=== PATIENT | male | born 1960 | race Caucasian/White ===

== ENCOUNTER 2016-08-26 11:06 | Emergency (ER) | payer OTHER ==
[2016-08-26 11:20] VITALS: BP 150/80; TEMP 96.3; BMI 29.4
--- NOTE | 2016-08-26 11:31 | ED.PDOC ---
General ED Provider: Dr. ATTILA SINGH JR Chief Complaint: Nausea/Vomiting Stated Complaint: felt like was starting to have panic attack, stomach started flipping over, vomited twice and started sweating[ End ]0830 96.3 54 20 97% 150/ 80 on xanax for panic attackes has been seen in [facility] for stomach issues has seen gi in reading Time Seen by Physician: 11:31 Mode of Arrival: Walk-In Information Source: Patient Exam Limitations: No limitations Primary Care Provider: LIBIA BURNETT Nursing and Triage Documentation Reviewed and Agree: No Review of Systems - Review Of Systems Constitutional: Reports: Malaise All Other Systems: Other Past Medical History - Past Medical History Endocrine: Reports: None Cardiovascular: Reports: None Respiratory: Reports: None Hematological: Reports: None Gastrointestinal: Reports: PUD (ulcers, barretts esophagus) Genitourinary: Reports: None Neuro/Psych: Reports: None Musculoskeletal: Reports: None Cancer: Reports: None Other Pertinent Past Medical History: spine and hip problems - Surgical History General Surgical History: Reports: Back Surgery (back diskectomy L4-L5) - Family History Family History: Reports: Unknown - Social History Smoking Status: Current every day smoker, Light tobacco smoker Hx Substance Use: No Alcohol Screening: None Physical Exam - Physical Exam Appearance: Well-appearing Ill-appearing: Mild Pain Distress: Mild Eyes: LISETH, EOMI, Conjunctiva clear ENT: Ears normal, Nose normal, Oropharynx normal Neck: Supple Respiratory: Airway patent, Breath sounds clear, Breath sounds equal, Respirations nonlabored Cardiovascular: RRR, Pulses normal, No rub, No murmur GI/: Soft, No masses, Bowel sounds normal, Tender Musculoskeletal: Normal strength, ROM intact, No edema, No calf tenderness Skin: Warm, Dry, Normal color Neurological: Sensation intact, Motor intact, Reflexes intact, Cranial nerves intact, Alert, Oriented Psychiatric: Anxious Interpretation - EKG Interpretation Time of EKG #1: 11:50 Rate: Arvind Rhythm: Sinus (56) ST Segment: Other (rbbb) Critical Care Note - Critical Care Note Total Time (mins): 0 Course - Course Hematology/Chemistry: 08/26/16 12:00 08/26/16 12:00 Orders, Labs, Meds: Lab Review 08/26/16 08/26/16 12:00 13:50 WBC 11.45 H RBC 5.39 Hgb 15.3 Hct 45.5 MCV 84.4 MCH 28.4 MCHC 33.6 RDW Coeff of Jose 14.3 Plt Count 274 Immature Gran % (Auto) 0.3 Neut % (Auto) 86.7 Lymph % (Auto) 9.3 L [place] % (Auto) 3.0 Eos % (Auto) 0.3 Baso % (Auto) 0.4 Immature Gran # (Auto) 0.0 Neut # 9.9 H Lymph # 1.1 [place] # 0.3 L Eos # 0.0 Baso # 0.1 Sodium 138 Potassium 4.2 Chloride 104 Carbon Dioxide 25 Anion Gap 13.2 BUN 8 Creatinine 1.14 H Estimated GFR (MDRD) 66.00 BUN/Creatinine Ratio 7.01 Glucose 125 H Calcium 9.4 Total Bilirubin 0.43 AST 15 ALT 16 Alkaline Phosphatase 51 Total Creatine Kinase 155 CK-MB (CK-2) 2.7 CK-MB (CK-2) % 1.18738 Troponin I < 0.0100 B-Natriuretic Peptide 18 Total Protein 6.7 Albumin 3.9 Globulin 2.8 Albumin/Globulin Ratio 1.39 Gastric Fluid pH Gastric Occult Blood Positive Orders Category Date Time Status EKG-(ED ONLY) Stat CARDIO 08/26/16 11:44 Completed NPO REMINDER: IMAGING ONCE CARE 08/26/16 11:45 Active B-TYPE NATRIURETIC PEPTIDE Stat LAB 08/26/16 12:00 Completed CBC W/ AUTO DIFF Stat LAB 08/26/16 12:00 Completed COMPREHENSIVE METABOLIC PANEL Stat LAB 08/26/16 12:00 Completed CREATINE KINASE Stat LAB 08/26/16 12:00 Completed GASTRIC OCCULT BLOOD AND PH Stat LAB 08/26/16 13:50 Completed TROPONIN I Stat LAB 08/26/16 12:00 Completed Ondansetron HCl/Pf [Zofran 4 mg/2 ml] MEDS 08/26/16 12:29 Discontinued 4 mg IM ONCE STA CHEST, 1V AP ONLY Stat RADS 08/26/16 11:44 Completed ULTRASOUND ABDOMEN, RT. UPPER QUAD [U/S ABDOMEN, RT. RADS 08/26/16 11:44 Completed UPPER QUAD] Stat Medications Discontinued Medications Generic Name Dose Route Start Last Admin Trade Name Freq PRN Reason Stop Dose Admin Ondansetron HCl 4 mg 08/26/16 12:29 08/26/16 12:36 Zofran 4 Mg/2 Ml IM 08/26/16 12:30 4 mg ONCE STA Administration Vital Signs: Temp Pulse Resp BP Pulse Ox 08/26/16 11:06 96.3 F L 54 L 20 150/80 H 97 Departure - Departure Time of Disposition: 13:26 Disposition: HOME SELF-CARE Discharge Problem: Nausea, Vomiting Instructions: Acute Nausea and Vomiting (ED) Condition: Good Pt referred to PMD for follow-up: Yes Additional Instructions: follow up with PMD discuss gastroenterology evaluation phenergan for nausea return if fever over 101.0 if worsening Prescriptions: Promethazine HCl [Phenergan Supp] 1 - 2 supp RC QID PRN #12 supp PRN Reason: Nausea / Vomiting Allergies/Adverse Reactions: Allergies aspirin Allergy (Mild, Verified 08/26/16 12:27) due to history of ulcers hydroxyzine HCl [From Atarax] Allergy (Mild, Verified 08/26/16 12:27) Foggy Qefjhcr-Qlz-Qih Reductase Inhibitor Allergy (Mild, Verified 08/26/16 12:27) due to ulcers baclofen Adverse Reaction (Verified 08/26/16 12:27) ranitidine [From Zantac] Adverse Reaction (Verified 08/26/16 12:27) Home Medications: Ambulatory Orders Omeprazole [Prilosec] 40 mg PO QDAC 08/26/16 Promethazine HCl [Phenergan Supp] 1 - 2 supp RC QID PRN #12 supp 08/26/16
[2016-08-26 12:07] LABS: BASOPHILS # (AUTO) 0.1 K/uL (0-0.2); BASOPHILS % (AUTO) 0.4 % (0.0-3.0); EOSINOPHILS % (AUTO) 0.3 % (0.0-7.0); HEMATOCRIT 45.5 % (42.0-52.0); HEMOGLOBIN 15.3 g/dl (14.0-18.0); IMMATURE GRANULOCYTE % (AUTO) 0.3 % (0.0-5.0); LYMPHOCYTES # (AUTO) 1.1 K/uL (0.60-3.4); LYMPHOCYTES % (AUTO) 9.3 (10.0-50.0); MEAN CORPUSCULAR HEMOGLOBIN 28.4 pg (27.0-31.0); MEAN CORPUSCULAR HGB CONC 33.6 (31.8-35.4); MEAN CORPUSCULAR VOLUME 84.4 fl (80.0-94.0); MONOCYTES # (AUTO) 0.3 K/uL (0.4-2.0); NEUTROPHILS # (AUTO) 9.9 K/ul (2.0-6.9); NEUTROPHILS % (AUTO) 86.7; PLATELET COUNT 274 10^3/uL (140-440); RED BLOOD COUNT 5.39 10^6/ul (4.70-6.10); WHITE BLOOD COUNT 11.45 K/ul (4.2-10.2)
[2016-08-26] MEDS ORDERED: ZOFRAN 4 MG/2 ML IM STA (12:29)
--- NOTE | 2016-08-26 12:36 | DI ---
EXAM: CHEST FRONTAL VIEW HISTORY: Chest pain. COMPARISON: None FINDINGS: Heart size and mediastinum within normal limits. Lungs are free of infiltrate. No c onsolidation or pleural fluid. There is no pneumothorax or acute bony finding. IMPRESSION: Findings within normal limits.
--- NOTE | 2016-08-26 12:49 | US ---
EXAM: Ultrasound abdomen limited. HISTORY: Right upper quadrant pain. Diaphoresis. COMPARISON: None available. TECHNIQUE: Abdominal, real time with image documentation: limited (eg, single organ, quadrant, fol low-up) FINDINGS: The liver demonstrates homogeneous echotexture without intrahepatic biliary dilatation. Portal venous flow is normal in direction. The gallbladder is without shadowing stones, wall thicke bernadette or pericholecystic fluid. Common duct measures approximately 0.4 cm. Visualized portions of t he pancreas are unremarkable. IMPRESSION: No sonographic abnormality of the liver, gallbladder or biliary system.
[2016-08-26 13:01] LABS: ALANINE AMINOTRANSFERASE 16 U/L (12-78); ALBUMIN 3.9 g/dL (3.4-5.0); ALBUMIN/GLOBULIN RATIO 1.39; ALKALINE PHOSPHATASE 51 U/L (50-136); ANION GAP 13.2; ASPARTATE AMINO TRANSFERASE 15 U/L (15-37); BILIRUBIN,TOTAL 0.43 mg/dL (0.00-1.20); BLOOD UREA NITROGEN 8 mg/dL (7-18); BUN/CREATININE RATIO 7.01; CALCIUM 9.4 mg/dL (8.2-10.2); CARBON DIOXIDE 25 mmol/L (21-32); CHLORIDE 104 mmol/L (98-107); CREATINE KINASE 155 U/L; CREATININE 1.14 mg/dL (0.60-1.10); GLUCOSE 125 mg/dL (70-100); POTASSIUM 4.2 mmol/L (3.5-5.1); SODIUM 138 mmol/L (136-145); TOTAL PROTEIN 6.7 g/dL (6.4-8.2)
[2016-08-26 13:03] LABS: CREATINE KINASE MB 2.7 ng/ml (0.0-3.6)
[2016-08-26 14:15] LABS: GASTRIC OCC. BLOOD INTERNAL QC INTERNAL QC VALID; GASTRIC OCCULT BLOOD POSITIVE (NEGATIVE)
== END 2016-08-26 14:11 | disposition home or self-care (01) ==
LOC: ED 11:06
DX: R11.2 Nausea with vomiting, unspecified (principal); F17.210 Nicotine dependence, cigarettes, uncomplicated; Z87.19 Personal history of other diseases of the digestive system
CPT/HCPCS: 36415; 80053; 82271; 82550; 82553; 83880; 84484; 85025; 93005; 93010; 96372; 99283

== ENCOUNTER 2016-08-29 05:59 | Inpatient (IN) ==
[2016-08-29] MEDS ORDERED: SODIUM CHLORIDE 1,000 ML IV STA ×2 (06:30→09:07)
[2016-08-29] MEDS ORDERED: PROTONIX IV IVP STA (06:31)
[2016-08-29] MEDS ORDERED: PHENERGAN 25 MG/ML VIAL 25 MG in SODIUM CHLORIDE 50 ML IV STA (06:33)
[2016-08-29 06:41] LABS: BASOPHILS # (AUTO) 0.1 K/uL (0-0.2); BASOPHILS % (AUTO) 0.3 % (0.0-3.0); EOSINOPHILS # (AUTO) 0.1 K/ul (0.0-0.7); EOSINOPHILS % (AUTO) 0.4 % (0.0-7.0); HEMATOCRIT 48.8 % (42.0-52.0); HEMOGLOBIN 16.3 g/dl (14.0-18.0); IMMATURE GRANULOCYTE % (AUTO) 0.4 % (0.0-5.0); LYMPHOCYTES # (AUTO) 2.3 K/uL (0.60-3.4); MEAN CORPUSCULAR HEMOGLOBIN 28.4 pg (27.0-31.0); MEAN CORPUSCULAR HGB CONC 33.4 (31.8-35.4); MONOCYTES # (AUTO) 1.2 K/uL (0.4-2.0); MONOCYTES % (AUTO) 7.9 (0-10); NEUTROPHILS # (AUTO) 11.5 K/ul (2.0-6.9); PLATELET COUNT 324 10^3/uL (140-440); RED BLOOD COUNT 5.74 10^6/ul (4.70-6.10); WHITE BLOOD COUNT 15.12 K/ul (4.2-10.2)
[2016-08-29] MEDS ORDERED: PHENERGAN 25 MG/ML VIAL ONE (06:41)
--- NOTE | 2016-08-29 06:42 | ED.PDOC ---
General Stated Complaint: stephanie been vomiting--im supposed to see a gi doctor next week-- no bm for 4 days Time Seen by Physician: 06:10 Mode of Arrival: Walk-In Information Source: Patient, Family Exam Limitations: No limitations Nursing and Triage Documentation Reviewed and Agree: Yes <JANELLE-ERBARBARA Last Filed: 08/29/16 06:39> <DENNIS HARP - Last Filed: 09/06/16 08:00> ED Provider: Dr. DENNIS HARP Chief Complaint: Nausea/Vomiting Primary Care Provider: LIBIA BURNETT GI Complaint Exam - Vomiting/Diarrhea Complaint/Exam Onset/Duration: 4days Symptoms Are: Still present Episodes of Vomiting over last 24 Hours: 5 Episodes of Diarrhea Over Last 24 Hours: 0 Initial Severity: Mild Current Severity: Moderate Character of Vomiting: Reports: Non-bilious Character of Diarrhea: Denies: Bloody, Watery, Mucoid, Malodorous Aggravating: Reports: Food Alleviating: Reports: None Associated Signs and Symptoms: Reports: Abdominal pain. Denies: Dizziness, Light-headedness, Melena, Fever Related History: Reports: Similar episode Non-GI Risk Factors: Reports: None Surgical Obstruction Risk Factors: Reports: Prior abdominal surgery Abdominal Findings: Present: None Prostate Exam: Nontender Kussmaul Respirations Present: No Differential Diagnoses: Cholecystitis, Cholelithiasis, Dehydration, Pancreatitis <CARONMONIKABARBARA Filed: 08/29/16 06:39> Review of Systems - Review Of Systems Constitutional: Reports: No symptoms Eyes: Reports: No symptoms Ears, Nose, Mouth, Throat: Reports: No symptoms Respiratory: Reports: No symptoms Cardiac: Reports: No symptoms GI: Reports: Abdominal pain, Nausea, Vomiting : Reports: No symptoms Musculoskeletal: Reports: No symptoms Skin: Reports: No symptoms Neurological: Reports: No symptoms Endocrine: Reports: No symptoms Hematologic/Lymphatic: Reports: No symptoms All Other Systems: Reviewed and Negative <CARONMONIKABARBARA Filed: 08/29/16 06:39> Past Medical History - Past Medical History Endocrine: Reports: None Cardiovascular: Reports: None Respiratory: Reports: None Hematological: Reports: None Gastrointestinal: Reports: PUD (ulcers, barretts esophagus) Genitourinary: Reports: None Neuro/Psych: Reports: None Musculoskeletal: Reports: None Cancer: Reports: None Other Pertinent Past Medical History: spine and hip problems - Surgical History General Surgical History: Reports: Back Surgery (back diskectomy L4-L5) - Family History Family History: Reports: Unknown - Social History Smoking Status: Former smoker Hx Substance Use: Yes (occasional marijuana for pain) Alcohol Screening: None Lives: With family - Immunizations Tetanus Shot up to Date: No <BARBARA COLON - Last Filed: 08/29/16 06:39> Physical Exam - Physical Exam Appearance: Well-appearing, No pain distress, Well-nourished Pain Distress: Mild Eyes: LISETH, EOMI, Conjunctiva clear ENT: Ears normal, Nose normal, Oropharynx normal Neck: Supple Respiratory: Airway patent, Breath sounds clear, Breath sounds equal, Respirations nonlabored Cardiovascular: RRR, Pulses normal, No rub, No murmur GI/: Soft, Nontender, No masses, Bowel sounds normal, No Organomegaly Musculoskeletal: Normal strength, Limited ROM Skin: Warm Neurological: Sensation intact, Motor intact, Reflexes intact, Cranial nerves intact, Alert, Oriented Psychiatric: Affect appropriate <BARBARA COLON - Last Filed: 08/29/16 06:39> Physician Notification - Case Discussed Physician Notified: dr harp Time of Notification: 07:00 <BARBARA COLON - Last Filed: 08/29/16 06:39> Critical Care Note - Critical Care Note Total Time (mins): 15 <DENNIS HARP - Last Filed: 09/06/16 08:00> Course - Course Hematology/Chemistry: 08/31/16 04:47 08/31/16 04:47 <DENNIS HARP - Last Filed: 09/06/16 08:00> - Course Orders, Labs, Meds: Lab Review 08/29/16 08/29/16 08/29/16 06:37 07:00 09:05 WBC 15.12 H RBC 5.74 Hgb 16.3 Hct 48.8 MCV 85.0 MCH 28.4 MCHC 33.4 RDW Coeff of Jose 14.1 Plt Count 324 Immature Gran % (Auto) 0.4 Neut % (Auto) 76.0 Lymph % (Auto) 15.0 [place] % (Auto) 7.9 Eos % (Auto) 0.4 Baso % (Auto) 0.3 Immature Gran # (Auto) 0.1 Neut # 11.5 H Lymph # 2.3 [place] # 1.2 Eos # 0.1 Baso # 0.1 Sodium 138 Potassium 3.1 L Chloride 98 Carbon Dioxide 29 Anion Gap 14.1 BUN 20 H Creatinine 1.29 H Estimated GFR (MDRD) 57.00 BUN/Creatinine Ratio 15.50 Glucose 106 H Calcium 9.0 Total Bilirubin 1.23 H AST 28 ALT 22 Alkaline Phosphatase 47 L Total Creatine Kinase 664 CK-MB (CK-2) 2.9 CK-MB (CK-2) % 0.14227 Troponin I 0.0130 Total Protein 7.3 Albumin 4.0 Globulin 3.3 Albumin/Globulin Ratio 1.21 Amylase 50 Lipase 21 Stl Occult Blood (IFOB) Negative Stool Occult Blood #2 No specimen received Stool Occult Blood #3 No specimen received Influenza A (Rapid) Negative Influenza B (Rapid) Negative Orders Category Date Time Status EKG-(ED ONLY) Stat CARDIO 08/29/16 06:29 Completed NPO REMINDER: IMAGING ONCE CARE 08/29/16 06:32 Completed ED IV/MEDIPORT/POWERPORT .ONCE EMERGENCY 08/29/16 06:30 Active AMYLASE Stat LAB 08/29/16 06:37 Completed CBC W/ AUTO DIFF Stat LAB 08/29/16 06:37 Completed COMPREHENSIVE METABOLIC PANEL Stat LAB 08/29/16 06:37 Completed CREATINE KINASE Stat LAB 08/29/16 06:37 Completed LIPASE Stat LAB 08/29/16 06:37 Completed MOLECULAR GROUP A STREP Stat LAB 08/29/16 07:00 Completed OCCULT BLOOD, STOOL Stat LAB 08/29/16 09:05 Completed RAPID FLU A/B Stat LAB 08/29/16 07:00 Completed STREP SCREEN Stat LAB 08/29/16 07:00 Completed TROPONIN I Stat LAB 08/29/16 06:37 Completed URINALYSIS C & S IF INDICATED Stat LAB 08/29/16 13:35 Completed 0.9 % Sodium Chloride [Saline Flush] MEDS 08/29/16 06:30 Discontinued 1 syr IVF PRN PRN Metoclopramide HCl [Reglan] MEDS 08/29/16 09:07 Discontinued 5 mg IVP ONCE STA Pantoprazole Sodium [Protonix IV] MEDS 08/29/16 06:31 Discontinued 40 mg IVP ONCE STA Potassium Chloride [Potassium Chloride Premix Run] 10 MEDS 08/29/16 08:38 Discontinued meq Premix 100 ml Water 1 bag IV ONCE Potassium Chloride [Potassium Chloride Premix Run] 100 MEDS 08/29/16 08:43 Discontinued ml IV .STK-MED Promethazine HCl [Phenergan 25 mg/ml Vial] MEDS 08/29/16 06:41 Discontinued 25 mg .ROUTE .STK-MED ONE Promethazine HCl [Phenergan 25 mg/ml Vial] 25 mg MEDS 08/29/16 06:33 Discontinued 0.9 % Sodium Chloride [Sodium Chloride] 50 ml IV ONCE Sodium Chloride 0.9% [Sodium Chloride] 1,000 ml MEDS 08/29/16 06:30 Discontinued IV BOLUS Sodium Chloride 0.9% [Sodium Chloride] 1,000 ml MEDS 08/29/16 09:[address] ABDOMEN/PELVIS W/WO CONTRAS Stat RADS 08/29/16 06:32 Completed Medications Discontinued Medications Generic Name Dose Route Start Last Admin Trade Name Freq PRN Reason Stop Dose Admin Alprazolam 1 mg 08/29/16 21:00 08/30/16 08:19 Xanax PO 1 mg BID GIANA Administration Alprazolam 1 mg 08/30/16 21:00 08/31/16 08:52 Xanax PO 1 mg BID GIANA Administration Sodium Chloride 1,000 mls @ 1,000 mls/hr 08/29/16 06:30 08/29/16 06:49 Sodium Chloride IV 08/29/16 07:29 1,000 mls/hr BOLUS STA Administration Promethazine HCl 25 mg/ Sodium 51 mls @ 75 mls/hr 08/29/16 06:33 08/29/16 06: 49 Chloride IV 08/29/16 07:13 75 mls/hr ONCE STA Administration Potassium Chloride 10 meq/ 100 mls @ 100 mls/hr 08/29/16 08:38 08/29/16 08:52 Sterile Water IV 08/29/16 09:37 100 mls/hr ONCE STA Administration Sodium Chloride 1,000 mls @ 1,000 mls/hr 08/29/16 09:07 08/29/16 10:06 Sodium Chloride IV 08/29/16 10:06 1,000 mls/hr BOLUS STA Administration Potassium Chloride/Dextrose/Sod Cl 1,000 mls @ 150 mls/hr 08/29/16 10:30 10:56 D5%-Ns-Kcl 20 Meq/L Iv Nithya IV Not Given .Q6H40M GIANA Metoclopramide HCl 5 mg 08/29/16 09:07 08/29/16 10:05 Reglan IVP 08/29/16 09:08 5 mg ONCE STA Administration Metoclopramide HCl 5 mg 08/29/16 10:11 Reglan IVP Q6H PRN Nausea / Vomiting Morphine Sulfate 2 mg 08/29/16 10:11 Morphine 2 Mg/Ml Syringe IVP Q4H PRN Severe Pain Ondansetron HCl 4 mg 08/29/16 10:11 08/31/16 05:18 Zofran 4 Mg/2 Ml IVP 4 mg Q6H PRN Administration Nausea / Vomiting Pantoprazole Sodium 40 mg 08/29/16 06:31 08/29/16 06:48 Protonix Iv IVP 08/29/16 06:32 40 mg ONCE STA Administration Pantoprazole Sodium 40 mg 08/29/16 21:00 08/31/16 09:33 Protonix Iv IVP 40 mg Q12HR GIANA Administration Potassium Chloride 40 meq 08/29/16 20:16 08/29/16 20:33 K-Dur PO 08/29/16 20:17 40 meq ONCE STA Administration Sodium Chloride 1 syr 08/29/16 06:30 Saline Flush IVF PRN PRN To flush IV Vital Signs: Temp Pulse Resp BP Pulse Ox 08/29/16 05:59 97.5 F L 93 H 20 126/91 H 94 L Departure <BARBARA COLON - Last Filed: 08/29/16 06:39> - Departure Time of Disposition: 10:20 Pt referred to PMD for follow-up: No (admitted ) <DENNIS HARP - Last Filed: 09/06/16 08:00> - Departure Disposition: ADMITTED INPATIENT Discharge Problem: Upper gastrointestinal hemorrhage Abdominal pain Qualifiers: Abdominal location: epigastric Qualifier Code: (R10.13) Epigastric pain Condition: Stable Allergies/Adverse Reactions: Allergies aspirin Allergy (Mild, Verified 08/29/16 06:18) due to history of ulcers hydroxyzine HCl [From Atarax] Allergy (Mild, Verified 08/29/16 06:18) Foggy Ldvkxju-Erp-Iog Reductase Inhibitor Allergy (Mild, Verified 08/29/16 06:18) due to ulcers baclofen Adverse Reaction (Verified 08/29/16 06:18) ranitidine [From Zantac] Adverse Reaction (Verified 08/29/16 06:18) Home Medications: Ambulatory Orders Omeprazole [Prilosec] 40 mg PO QDAC 08/26/16 Promethazine HCl [Phenergan Tab] 25 mg PO Q4HR PRN 08/29/16 Sucralfate [Carafate] 1 gm PO ACHS #120 tablet 08/31/16
[2016-08-29 07:17] LABS: ALBUMIN/GLOBULIN RATIO 1.21; ANION GAP 14.1; BILIRUBIN,TOTAL 1.23 mg/dL (0.00-1.20); BUN/CREATININE RATIO 15.5; CREATININE 1.29 mg/dL (0.60-1.10); POTASSIUM 3.1 mmol/L (3.5-5.1); TOTAL PROTEIN 7.3 g/dL (6.4-8.2)
[2016-08-29 07:18] LABS: TROPONIN I 0.013 ng/ml (0.0000-0.4000)
[2016-08-29 07:20] LABS: CREATINE KINASE MB 2.9 ng/ml (0.0-3.6)
[2016-08-29 07:21] LABS: FLU INTERNAL QC INTERNAL QC VALID; RAPID FLU A NEGATIVE (NEGATIVE); RAPID FLU B NEGATIVE (NEGATIVE)
--- NOTE | 2016-08-29 07:57 | CT ---
EXAM: CT scan of the abdomen and pelvis with and without contrast HISTORY: Abdominal pain, vomiting TECHNIQUE: Imaging of the abdomen and pelvis was performed before and after the intravenous adminis tration of contrast. 3 mm thin axial images and coronal and sagittal reconstructions were provided for interpretation. Comparison none. FINDINGS: The liver, spleen, pancreas, adrenal glands and kidneys appear normal. The proximal uret ers are normal size. The small and large bowel loops caliber. The appendix appears normal. There i s no free air. No acute abnormalities are seen within the anterior abdominal wall. The helical images obtained through the pelvis demonstrate a normal appearance of the rectum, urinar y bladder. There is no free fluid seen within the pelvis. No retroperitoneal abnormalities are see n. Lung bases are clear. No lytic or blastic lesions are seen within the osseous structures. IMPRESSION: There is no bowel obstruction or acute inflammatory change seen within the abdomen and pelvis. There is no ureteral obstruction.
[2016-08-29] MEDS ORDERED: POTASSIUM CHLORIDE PREMIX RUN 10 MEQ in PREMIX 100 ML WATER 1 BAG IV STA (08:38)
[2016-08-29] MEDS ORDERED: POTASSIUM CHLORIDE PREMIX RUN 100 ML IV ONE (08:43)
[2016-08-29] MEDS ORDERED: REGLAN IVP STA (09:07)
[2016-08-29 09:31] LABS: OCCULT BLOOD INTERNAL QC 1 INTERNAL QC VALID; OCCULT BLOOD SAMPLE 1 NEGATIVE (NEGATIVE)
[2016-08-29 09:32] LABS: OCCULT BLOOD INTERNAL QC 2 INTERNAL QC VALID; OCCULT BLOOD INTERNAL QC 3 INTERNAL QC VALID; OCCULT BLOOD SAMPLE 2 NO SPECIMEN RECEIVED (NEGATIVE); OCCULT BLOOD SAMPLE 3 NO SPECIMEN RECEIVED (NEGATIVE)
[2016-08-29] MEDS ORDERED: REGLAN IVP PRN (10:11)
[2016-08-29] MEDS ORDERED: ZOFRAN 4 MG/2 ML IVP PRN (10:11)
[2016-08-29] MEDS ORDERED: MORPHINE 2 MG/ML SYRINGE IVP PRN (10:11)
[2016-08-29 11:08] VITALS: BMI 27.7
[2016-08-29] MEDS: D5%-NS-KCL 20 MEQ/L IV SOL 1,000 ML IV SCH ×2 (12:04→18:46)
[2016-08-29 13:47] LABS: BILIRUBIN,URINE Negative (NEGATIVE); KETONES,URINE 2+ (NEGATIVE); LEUKOCYTE ESTERASE ,URINE Negative (NEGATIVE); NITRITE,URINE Negative (NEGATIVE); PH,URINE 7.5 (5-9); PROTEIN,URINE 1+ (NEGATIVE); URINE, BLOOD Negative (NEGATIVE)
[2016-08-29 13:51] LABS: ADD URINE MICROSCOPIC YES
[2016-08-29] MEDS ORDERED: K-DUR PO STA (20:16)
[2016-08-29] MEDS: PROTONIX IV IVP SCH (20:25)
[2016-08-29] MEDS: XANAX PO SCH (20:25)
[2016-08-29] MEDS ORDERED: NON-FORMULARY MEDICATION (Alprazolam [Xanax] 1 MG) PO SCH ×22 (21:00)
[2016-08-30] MEDS: D5%-NS-KCL 20 MEQ/L IV SOL 1,000 ML IV SCH ×4 (02:23→23:14)
[2016-08-30 04:59] LABS: BASOPHILS # (AUTO) 0.1 K/uL (0-0.2); BASOPHILS % (AUTO) 0.6 % (0.0-3.0); EOSINOPHILS # (AUTO) 0.1 K/ul (0.0-0.7); EOSINOPHILS % (AUTO) 1.1 % (0.0-7.0); HEMATOCRIT 39.3 % (42.0-52.0); HEMOGLOBIN 13.1 g/dl (14.0-18.0); IMMATURE GRANULOCYTE % (AUTO) 0.4 % (0.0-5.0); LYMPHOCYTES # (AUTO) 2.3 K/uL (0.60-3.4); LYMPHOCYTES % (AUTO) 22.5 (10.0-50.0); MEAN CORPUSCULAR HEMOGLOBIN 28.7 pg (27.0-31.0); MEAN CORPUSCULAR HGB CONC 33.3 (31.8-35.4); MEAN CORPUSCULAR VOLUME 86.2 fl (80.0-94.0); MONOCYTES # (AUTO) 0.8 K/uL (0.4-2.0); MONOCYTES % (AUTO) 8.3 (0-10); NEUTROPHILS # (AUTO) 6.7 K/ul (2.0-6.9); NEUTROPHILS % (AUTO) 67.1; PLATELET COUNT 243 10^3/uL (140-440); RED BLOOD COUNT 4.56 10^6/ul (4.70-6.10); WHITE BLOOD COUNT 10.01 K/ul (4.2-10.2)
[2016-08-30 06:32] LABS: ALBUMIN/GLOBULIN RATIO 1.2; ANION GAP 9.6; BILIRUBIN,TOTAL 0.8 mg/dL (0.00-1.20); BUN/CREATININE RATIO 11.36; CALCIUM 7.6 mg/dL (8.2-10.2); CREATININE 0.88 mg/dL (0.60-1.10); POTASSIUM 3.6 mmol/L (3.5-5.1); TOTAL PROTEIN 5.5 g/dL (6.4-8.2)
[2016-08-30] MEDS: XANAX PO SCH ×2 (08:19→20:37)
[2016-08-30] MEDS ORDERED: LOVENOX SUBCUT SCH (09:00)
[2016-08-30] MEDS: PROTONIX IV IVP SCH ×2 (09:28→20:37)
[2016-08-31 04:49] LABS: BASOPHILS # (AUTO) 0.1 K/uL (0-0.2); BASOPHILS % (AUTO) 0.7 % (0.0-3.0); EOSINOPHILS # (AUTO) 0.4 K/ul (0.0-0.7); EOSINOPHILS % (AUTO) 3.9 % (0.0-7.0); HEMATOCRIT 40.7 % (42.0-52.0); HEMOGLOBIN 13.5 g/dl (14.0-18.0); IMMATURE GRANULOCYTE % (AUTO) 0.5 % (0.0-5.0); LYMPHOCYTES # (AUTO) 2.8 K/uL (0.60-3.4); LYMPHOCYTES % (AUTO) 27.5 (10.0-50.0); MEAN CORPUSCULAR HEMOGLOBIN 28.7 pg (27.0-31.0); MEAN CORPUSCULAR HGB CONC 33.2 (31.8-35.4); MEAN CORPUSCULAR VOLUME 86.6 fl (80.0-94.0); MONOCYTES # (AUTO) 0.8 K/uL (0.4-2.0); MONOCYTES % (AUTO) 7.4 (0-10); PLATELET COUNT 239 10^3/uL (140-440); WHITE BLOOD COUNT 10.07 K/ul (4.2-10.2)
[2016-08-31 05:12] LABS: ALBUMIN 3.2 g/dL (3.4-5.0); ALBUMIN/GLOBULIN RATIO 1.19; ANION GAP 8.7; BILIRUBIN,TOTAL 0.68 mg/dL (0.00-1.20); BUN/CREATININE RATIO 7.29; CALCIUM 8.2 mg/dL (8.2-10.2); CREATININE 0.96 mg/dL (0.60-1.10); POTASSIUM 3.7 mmol/L (3.5-5.1); TOTAL PROTEIN 5.9 g/dL (6.4-8.2)
[2016-08-31] MEDS: XANAX PO SCH (08:52)
[2016-08-31] MEDS: PROTONIX IV IVP SCH (09:33)
--- NOTE | 2016-08-31 10:03 | PCM.PROG ---
Attending Provider: ATTENDING PROVIDER: Dr. REDD MALONEY DATE OF SERVICE: 08/31/16 SUBJECTIVE: This 56 year old WHITE/ M was hospitalized 08/29/16. The patient was admitted with vomiting. Today hemoglobin is stable. He is tolerating a regular diet. The patient states he has an appointment with a GI specialist at [facility] on the . He has no more blood in the stool. No more vomiting. He still has some epigastric pain. REVIEW OF SYSTEMS: CONSTITUTIONAL: No fever, no chills. ENDOCRINE: No weight loss or weight gain. HEENT: No sinus drainage, no sore throat. CVS: No angina symptoms. No CHF symptoms. No palpitations. No atypical chest pain for CAD. No shortness of breath. RESPIRATORY: No cough, no hemoptysis. GI: No melena. Epigastric discomfort. No nausea, no vomiting. : No hematuria. No polyuria. SKIN: No rash. No wounds. MUSCULOSKELETAL: No pain. 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 No headache. No double vision. PSYCHIATRIC: Not anxious; no depression. No suicidal thoughts. No homicidal thoughts. PHYSICAL EXAMINATION: GENERAL: Sitting in the chair in no distress. VITAL SIGNS: Temperature 97.8 F, Pulse 59, Respiratory Rate 18, BP 132/81, Pulse Ox 99% HEENT: Normocephalic, atraumatic. Mucosa is dry, pallor positive. NECK: No JVP, no carotid bruit. No lymphadenopathy. CARDIAC: S1, S2, no S3. No murmur, gallop or regurgitation. LUNGS: Clear to auscultation. ABDOMEN: Soft, non-tender. Epigastric discomfort. Bowel sounds active. No rigidity, guarding or CVA tenderness. EXTREMITIES: No clubbing, cyanosis or edema. NEUROLOGIC: Awake, alert and oriented x3. LYMPHATIC: No palpable lymph nodes SKIN: Not dry. Intact. MUSCULOSKELETAL: No joint swelling. LAB REVIEW: 08/31/16 04:47 08/31/16 04:47 08/31/16 04:47: WBC 10.07, RBC 4.70, Hgb 13.5 L, Hct 40.7 L, MCV 86.6, MCH 28.7 , MCHC 33.2, RDW Coeff of Jose 13.6, Plt Count 239, Immature Gran % (Auto) 0.5, Neut % (Auto) 60.0, Lymph % (Auto) 27.5, [place] % (Auto) 7.4, Eos % (Auto) 3.9, Baso % (Auto) 0.7, Immature Gran # (Auto) 0.1, Neut # 6.0, Lymph # 2.8, [place] # 0.8, Eos # 0.4, Baso # 0.1, Sodium 139, Potassium 3.7, Chloride 110 H, Carbon Dioxide 24, Anion Gap 8.7, BUN 7, Creatinine 0.96, Estimated GFR (MDRD) 81.00, BUN/Creatinine Ratio 7.29, Glucose 97, Calcium 8.2, Total Bilirubin 0.68, AST 19 , ALT 25, Alkaline Phosphatase 34 L, Total Protein 5.9 L, Albumin 3.2 L, Globulin 2.7, Albumin/Globulin Ratio 1.19 ASSESSMENT: 1. Upper GI bleed with hematemesis, coffee ground; stable hemoglobin 2. History of upper GI bleed with Wise's esophagus. 3. History of DJD with lumbar surgeries PLAN: 1. Soft diet 2. No spicy food 3. Followup at [facility] 4. Discharge home 5. Carafate four times a day 6. Continue Prilosec Plan and coordination of the patient's care discussed in the presence of Environmental Professional and nurse. EDUCATION: Discussed with the patient GI bleeding, diet with foods to avoid to include pizza, tomatoes, et cetera. He voiced understanding. Advised seeing a GI specialist; he has an appointment coming up. CONDITION: Stable SCRIBED BY: [employer] scribed while in presence of service performed by Dr. REDD MALONEY on 08/31/16 (0728)
[2016-08-31 10:19] VITALS: BP 128/78; TEMP 98
[2016-08-31] MEDS: D5%-NS-KCL 20 MEQ/L IV SOL 1,000 ML IV SCH (10:56)
--- NOTE | 2016-08-31 14:15 | HP ---
DATE OF SERVICE: 08/29/16 CHIEF COMPLAINT: Abdominal pain. HISTORY OF PRESENT ILLNESS: This is a 56-year-old male, who has a history of peptic ulcer disease, has been taking Nexium twice a day but lately because of insurance changes it was decreased to once a day. Ever since that he has been nauseous, hurting in the epigastric area and started vomiting. Vomitus does contain some coffee ground emesis. He was seen two days before in the emergency room for the same reason. The patient was given some Phenergan and sent home. The patient is still not able to keep anything down, having epigastric pain, nausea and vomiting and came to the emergency room for evaluation. He was seen by Dr. Banks. CT abdomen and pelvis was done. There was no acute findings. White count was 15,000 , potassium 3.1. Amylase and lipase were normal. Urine negative. Stool for occult blood test negative. At that time in view of persistent vomiting, history of coffee ground emesis, history of upper GI bleed in the past, the patient is admitted to the hospital for IV fluids and maintenance of the coffee ground emesis. REVIEW OF SYSTEMS: CONSTITUTIONAL: Weakness, tiredness. No fever, no chills. HEENT: Normal. ENDOCRINE: No weight gain; no weight loss. CVS: No chest pain. No PND, no orthopnea. No shortness of breath. No PND, no orthopnea. RESPIRATORY: No cough, no congestion. No hemoptysis. GI: Abdominal pain. Vomiting. Epigastric pain. Melena in the vomitus. : No hematuria. No polyuria. MUSCULOSKELETAL: No joint swelling. PSYCHIATRIC: Not anxious. No depression. No suicidal thoughts. No homicidal thoughts. SKIN: Intact, no open lesions. PAST MEDICAL HISTORY: 1. History of Couch's esophagitis, EGD done by Dr. Peralta 2. Hiatal hernia 3. Abdominal pain 4. History of hematemesis and GI bleed 5. He has a problem with anxiety and substance use, occasional marijuana 6. Osteoarthritis 7. DJD spine 8. The patient had Lyme's disease times three 9. TIA 10. Endoscopy times three 11. Bronchoscopy PAST SURGICAL HISTORY: 1. L4-L5 surgery 2. Right torn cartilage 3. Stem cell shots 4. Lumbar laminectomy PERSONAL HISTORY: Smokes one pack a day for 40 years; occasional marijuana; no alcohol. FAMILY HISTORY: Significant for high blod pressure. MEDICATIONS: (HOME) 1. Xanax 2. Prilosec 3. Phenergan ALLERGIES: ASPIRIN, HYDROXYZINE, STATINS, BACLOFEN PHYSICAL EXAMINATION: V/S: BP 126/91, respiratory rate 20, heart rate is 93, temperature 97.5, saturation 94. GENERAL: The patient is in mild distress from epigastric pain. HEENT: Atraumatic, normocephalic. No scleral icterus. Pallor . Mucosa . NECK: Supple. No JVD, no bruit. No lymphadenopathy. No thyromegaly. HEART: S1, S2 normal. No murmur. No cyanosis or clubbing. No ascites. LUNGS: Clear to auscultation. No rales or rhonchi. ABDOMEN: Soft, nontender. Bowel sounds are sluggish. No CVA tenderness. No rigidity or guarding. EXTREMITIES: No cyanosis, clubbing or pedal edema. MUSCULOSKELETAL: Normal joints, no swelling. NEUROLOGIC: The patient is SKIN: Intact; no open lesions. LYMPHATIC: No lymph nodes palpable. LABS: White count 15.12, hemoglobin 14.7, hematocrit 48.8, platelet count 324. Sodium 138, potassium 3.1, chloride 98, bicarb 29, BUN 20, creatinine 1.29, glucose 106 , total bilirubin 1.23. Amylase and lipase negative. UA negative. Stool for occult blood test is negative. ASSESSMENT: 1. INTRACTABLE ABDOMINAL PAIN/COFFEE GROUND EMESIS, RULE OUT GI BLEED 2. HISTORY OF UPPER GI BLEED 3. HISTORY OF COUCH'S ESOPHAGUS 4. OSTEOARTHRITIS 5. DJD SPINE 6. LUMBAR SPINE SURGERY PLAN: 1. Admit patient to regular floor 2. CBC, CMP today and daily 3. IV fluids 4. Protonix q.12hr 5. Replace potassium 6. Morphine for pain 7. Continue home medication TIME SPENT: More than 70 minutes today MTDD
--- NOTE | 2016-09-01 07:25 | PN ---
DATE OF SERVICE: 08/30/16 SUBJECTIVE: The patient was admitted with upper GI bleed, epigastric pain and the patient did have some bloody stools per him. He still has abdominal pain, nauseous. Regular diet is not started. Clear liquid diet is tolerated. Vomiting is less. REVIEW OF SYSTEMS: CONSTITUTIONAL: No fever, no chills. HEENT: Normal. ENDOCRINE: No weight gain, no weight loss. CVS: No angina symptoms. No CHF symptoms. No palpitations. No atypical chest pain for CAD. No shortness of breath. No PND, no orthopnea. RESPIRATORY: No cough, no hemoptysis. GI: Nausea, vomiting (less). Abdominal pain. : No hematuria. No polyuria. MUSCULOSKELETAL:. No joint swelling. PSYCHIATRIC: Not anxious. No depression. No suicidal thoughts. No homicidal thoughts. SKIN: Intact. No rash. PHYSICAL EXAMINATION: V/S: BP 137/87, respiratory rate 20, heart rate 67, temperature 98.3. HEENT: Normocephalic, atraumatic. Mucosa .dry, pallor positive. No icterus. NECK: Supple. No JVD, no carotid bruit. No lymphadenopathy. LUNGS: Clear to auscultation. No rales or rhonchi. HEART: S1, S2 normal. No S3. No murmur, gallop or regurgitation. ABDOMEN: Epigastric tenderness present. Soft. Bowel sounds active. No rigidity. No rebound or guarding. No CVA tenderness. EXTREMITIES: No clubbing, cyanosis or pedal edema. MUSCULOSKELETAL: No joint swelling. NEUROLOGIC: Awake, alert, oriented times three. No focal deficit. LYMPHATIC: No lymph nodes palpable. SKIN: Intact. LABS: White count 10.01, hemoglobin 13.1, hematocrit 39.3, platelet count 243. Sodium 138, potassium 3.6, chloride 110, bicarb 22, BUN 10, creatinine 0.88. ASSESSMENT: 1. UPPER GI BLEED 2. ANEMIA 3. INTRACTABLE ABDOMINAL PAIN WHICH IS GETTING BETTER 4. DJD 5. OSTEOARTHRITIS 6. ANXIETY DISORDER PLAN: 1. Continue soft diet 2. Continue Protonix twice a day 3. Phenergan 4. Out of bed to chair 5. Will follow with the patient in daily rounds TIME SPENT: More than 30 minutes MTDD
--- NOTE | 2016-09-01 15:08 | DS ---
DATE OF SERVICE: 08/31/16 FINAL DIAGNOSIS: 1. Hematemesis, hgb is stable 13.5 2. History of Wise's esophagus 3. History of upper GI Bleed 4. DJD spine with surgery on the back 5. Panic attacks 6. Occasional marijuana use 7. Continue nicotine use DISCHARGE INSTRUCTIONS: Discharge the patient home. Continued followup with [facility] GI doctor for endoscopy. The patient will be returning to the [facility] at the [facility]. MEDICATIONS AT DISCHARGE: Xanax Prilosec Phenergan Carafate NEW PRESCRIPTIONS: Carafate 1gm AC and HS DIET INSTRUCTIONS: No spicy food No fried good Cardiac healthy diet ACTIVITY: As tolerated SMOKING: Current Smoker DISEASE SPECIFIC EDUCATION: Peptic ulcer disease Spicy food GI bleed been discussed and verbalized understand. HOSPITAL COURSE: Pee Schwartz who is a 56 year old male came to the emergency room with the coffee ground hematemesis and Upper GI bleed. He used to take the Prilosec twice a day but because of the insurance he was changed to the once a day then started having the severe epigastric pain and came to the emergency with the coffee ground hematemesis. CT of the abdomen and pelvis was done in the emergency room which showed not acute bowel obstruction. The patient was given some pain medication in the emergency room and still was not able to keep anything down. At that time the patient is admitted to the hospital with the IV fluids, Morphine for pain and Protonix twice a day. Gradually the patient started feeling better, clear liquids started and he tolerated them and then advised to the soft diet and he tolerated that. H and H was continued which dropped to 31.1 and 13.5 and then was steady. Eventually the patient's belly pain was resolved and did not have any complication. Amylase and lipase was also normal. As patient already has appointment with GI in the [facility] we encouraged him to have a followup meanwhile try to stick with the bland diet. When the patient was admitted his potassium was low and potassium was replaced and the renal failure was seen the BUN 20 and creatinine 1.29 which got better with the BUN 7 and creatinine 0.96 with IV fluids. TIME SPENT: More than 70 minutes. [facility]
== END 2016-08-31 12:00 | disposition home or self-care (01) | DRG 379 ==
LOC: ED 05:59 → MEDSURG B 09:48
PROVIDERS: ADMIT Emergency Medicine; ATTEND Emergency Medicine
DX: K92.0 Hematemesis (principal); K92.2 Gastrointestinal hemorrhage, unspecified; R10.13 Epigastric pain; K59.00 Constipation, unspecified; K22.70 Barrett's esophagus without dysplasia; M47.9 Spondylosis, unspecified; F12.90 Cannabis use, unspecified, uncomplicated; F41.0 Panic disorder [episodic paroxysmal anxiety]; D64.9 Anemia, unspecified; F17.200 Nicotine dependence, unspecified, uncomplicated; Z87.19 Personal history of other diseases of the digestive system; Z79.899 Other long term (current) drug therapy
CPT/HCPCS: 36415; 80053; 81001; 82150; 82272; 82550; 82553; 83690; 84484; 85018; 85025; 87651; 87804; 87880; 93005; 93010; 96365; 96367; 96375; 99223; 99233; 99239; 99284

== ENCOUNTER 2017-05-26 16:10 | Outpatient (CLI) ==
--- NOTE | 2017-05-26 16:43 | DI ---
EXAM: Chest two views HISTORY: Cough FINDINGS: Normal cardiac and mediastinal contours. Normal pulmonary vasculature. Lungs are clear. No significant abnormality of the bony thorax. IMPRESSION: Chest radiograph within normal limits.
== END 2017-05-26 16:11 | disposition home or self-care (01) ==
LOC: RAD 16:10
PROVIDERS: ATTEND Physician Assistant
DX: R05 Cough (principal)

== ENCOUNTER 2017-08-09 10:29 | Inpatient (IN) | payer OTHER ==
[2017-08-09] MEDS ORDERED: ZOFRAN 4 MG/2 ML IVP STA (11:37)
--- NOTE | 2017-08-09 12:00 | DI ---
Exam: Chest two-view HISTORY: Cough, coffee ground emesis. Comparison: 05/26/2017. FINDINGS: Two views of the chest demonstrate hyper expanded lungs with no evidence of pneumonia or e mario. The heart is normal in size and configuration. The thoracic aorta is partially calcified. Ca lcified granulomata are noted. The pulmonary vasculature is not congested. The skeletal structures a re intact. There are degenerative findings in the spine. IMPRESSION: No acute cardiopulmonary disease. Hyperexpanded lungs consistent with COPD. Atherosclerosis and prior granulomatosis.
--- NOTE | 2017-08-09 12:18 | CT ---
EXAM: CT Abdomen without contrast. CT Pelvis without contrast. HISTORY: Coffee-ground emesis. Right-sided abdominal pain. COMPARISON: 08/29/2016. TECHNIQUE: Multiple axial images of the abdomen and pelvis were obtained without intravenous contras t. Images were reformatted in the sagittal and coronal plane. FINDINGS: Please note that evaluation of the abdominal and pelvic structures is limited due to lack of intravenous contrast. No acute abnormality identified in the lung bases. Left side pars defect suggested at L5 with grade 1 anterolisthesis of L5 on S1. Gallbladder, liver, pancreas, spleen, and adrenal glands demonstrate normal contour. No calcified re nal stones or hydronephrosis detected. The bowel is normal in course and caliber without evidence for obstruction or inflammatory process. The appendix is normal. Urinary bladder is unremarkable. No free fluid or free air identified. Ath erosclerotic calcifications are present. Small fat-containing umbilical hernia is identified. IMPRESSION: No acute abnormality within the abdomen or pelvis.
--- NOTE | 2017-08-09 12:39 | ED.PDOC ---
General ED Provider: Dr. MARIEL CASTANEDA Chief Complaint: Nausea/Vomiting Stated Complaint: NAUSEA, EPIGASTRIC PAIN, COFFEE GROUND EMESIS Time Seen by Physician: 10:30 (ABOMEN SOFT ON PRESENTATION) Mode of Arrival: Walk-In Information Source: Patient Exam Limitations: No limitations Primary Care Provider: LIBIA BURNETT Nursing and Triage Documentation Reviewed and Agree: Yes (NO GI BLEED OR EMESIS IN THE ED ) Reviewed sepsis parameters & appropriate labs ordered?: Yes System Inflammatory Response Syndrome: Not Applicable Sepsis Protocol: For patient's 13 years and over: Temp is 96.8 and below OR 101 and greater Pulse >90 BPM Resp >20/minute Acutely Altered Mental Status Are patient's symptoms suggestive of a new infection, such as: -Pneumonia -Skin, Soft Tissue -Endocarditis -UTI -Bone, Joint Infection -Implantable Device -Acute Abdominal Infection -Wound Infection -Meningitis -Blood Stream Catheter Infection -Unknown System Inflammatory Response Syndrome: Not Applicable GI Complaint Exam - Vomiting/Diarrhea Complaint/Exam Onset/Duration: 1 DAY VOMITED X 3 CONSISTED OF COFFEE GROUNDS Symptoms Are: Resolved Episodes of Vomiting over last 24 Hours: 3 Episodes of Diarrhea Over Last 24 Hours: 0 Current Severity: None Character of Vomiting: Reports: Non-bilious (SEE ABOVE ) Aggravating: Reports: None Alleviating: Reports: None Associated Signs and Symptoms: Denies: Dizziness, Light-headedness, Melena, Hematemesis, Fever, Abdominal pain, Cramping Related History: Reports: Similar episode (HISTORY OF PALMIRA'S ESOPHAGITIS) Non-GI Risk Factors: Reports: None Surgical Obstruction Risk Factors: Reports: None Related Surgical History: Reports: None Abdominal Findings: Present: None Kussmaul Respirations Present: No Differential Diagnoses: Dehydration, Gastritis, PUD, Pancreatitis Review of Systems - Review Of Systems Constitutional: Reports: No symptoms Eyes: Reports: No symptoms Ears, Nose, Mouth, Throat: Reports: No symptoms Respiratory: Reports: Cough Cardiac: Reports: No symptoms GI: Reports: Vomiting : Reports: No symptoms Musculoskeletal: Reports: No symptoms Skin: Reports: No symptoms Neurological: Reports: No symptoms Endocrine: Reports: No symptoms Hematologic/Lymphatic: Reports: No symptoms All Other Systems: Reviewed and Negative Past Medical History - Past Medical History Previously Healthy: Yes Endocrine: Reports: None Cardiovascular: Reports: None Respiratory: Reports: None Hematological: Reports: None Gastrointestinal: Reports: PUD (ulcers, barretts esophagus) Genitourinary: Reports: None Neuro/Psych: Reports: None Musculoskeletal: Reports: None Cancer: Reports: None Other Pertinent Past Medical History: spine and hip problems - Surgical History General Surgical History: Reports: Back Surgery (back diskectomy L4-L5) - Family History Family History: Reports: Unknown - Social History Smoking Status: Current every day smoker, Light tobacco smoker Hx Substance Use: No Alcohol Screening: None Physical Exam - Physical Exam Appearance: Well-appearing, No pain distress, Well-nourished Eyes: LISETH, EOMI, Conjunctiva clear ENT: Ears normal, Nose normal, Oropharynx normal Respiratory: Airway patent, Breath sounds clear, Breath sounds equal, Respirations nonlabored Cardiovascular: RRR, Pulses normal, No rub, No murmur GI/: Soft, Nontender, No masses, Bowel sounds normal, No Organomegaly Musculoskeletal: Normal strength, ROM intact, No edema, No calf tenderness Skin: Warm, Dry, Normal color Neurological: Sensation intact, Motor intact, Reflexes intact, Cranial nerves intact, Alert, Oriented Psychiatric: Affect appropriate, Mood appropriate Interpretation - Radiology Interpretation Radiology Interpretation By: Radiologist Radiology Results: No acute changes Physician Notification - Case Discussed Physician Notified: [email or web address] Time of Notification: 12:41 Critical Care Note - Critical Care Note Total Time (mins): 0 Course - Course Hematology/Chemistry: 08/09/17 11:45 08/09/17 11:45 Orders, Labs, Meds: Lab Review 08/09/17 08/09/17 08/09/17 11:45 11:45 11:45 WBC 21.15 H RBC 5.31 Hgb 15.3 Hct 45.6 MCV 85.9 MCH 28.8 MCHC 33.6 RDW Coeff of Jose 15.1 H Plt Count 324 Immature Gran % (Auto) 1.0 Neut % (Auto) 84.1 Lymph % (Auto) 8.6 L Collin % (Auto) 6.1 Eos % (Auto) 0.0 Baso % (Auto) 0.2 Immature Gran # (Auto) 0.2 Neut # (Auto) 17.8 H Lymph # (Auto) 1.8 Collin # (Auto) 1.3 Eos # (Auto) 0.0 Baso # (Auto) 0.0 PT 9.9 INR 0.99 APTT 32.3 Sodium 141 Potassium 3.3 L Chloride 104 Carbon Dioxide 25 Anion Gap 15.3 BUN 18 Creatinine 1.36 H Estimated GFR (MDRD) 54.00 BUN/Creatinine Ratio 13.23 Glucose 103 H Calcium 9.8 Total Bilirubin 0.8 AST 18 ALT 16 Alkaline Phosphatase 48 L Total Protein 7.7 Albumin 4.0 Globulin 3.7 Albumin/Globulin Ratio 1.08 Procalcitonin 08/09/17 11:45 WBC RBC Hgb Hct MCV MCH MCHC RDW Coeff of Jose Plt Count Immature Gran % (Auto) Neut % (Auto) Lymph % (Auto) Collin % (Auto) Eos % (Auto) Baso % (Auto) Immature Gran # (Auto) Neut # (Auto) Lymph # (Auto) Collin # (Auto) Eos # (Auto) Baso # (Auto) PT INR APTT Sodium Potassium Chloride Carbon Dioxide Anion Gap BUN Creatinine Estimated GFR (MDRD) BUN/Creatinine Ratio Glucose Calcium Total Bilirubin AST ALT Alkaline Phosphatase Total Protein Albumin Globulin Albumin/Globulin Ratio Procalcitonin < 0.05 Orders Category Date Time Status ED IV/MEDIPORT/POWERPORT .ONCE EMERGENCY 08/09/17 11:37 Active BLOOD CULTURE (ED ONLY) Stat LAB 08/09/17 12:48 Received CBC W/ AUTO DIFF Stat LAB 08/09/17 11:45 Completed COMPREHENSIVE METABOLIC PANEL Stat LAB 08/09/17 11:45 Completed PARTIAL THROMBOPLASTIN TIME Stat LAB 08/09/17 11:45 Completed PROCALCITONIN Stat LAB 08/09/17 11:45 Completed PT WITH INR Stat LAB 08/09/17 11:45 Completed 0.9 % Sodium Chloride [Saline Flush] MEDS 08/09/17 11:37 Active 1 syr IVF PRN PRN Ondansetron HCl/Pf [Zofran 4 mg/2 ml] MEDS 08/09/17 11:37 Discontinued 4 mg IVP ONCE STA CHEST, 2 VIEWS PA & LAT Stat RADS 08/09/17 11:[address] ABDOMEN/PELVIS WO CONTRAST Stat RADS 08/09/17 11:37 Completed Medications Generic Name Dose Route Start Last Admin Trade Name Freq PRN Reason Stop Dose Admin Sodium Chloride 1 syr 08/09/17 11:37 08/09/17 11:59 Saline Flush IVF 1 syr PRN PRN Administration To flush IV Discontinued Medications Generic Name Dose Route Start Last Admin Trade Name Freq PRN Reason Stop Dose Admin Ondansetron HCl 4 mg 08/09/17 11:37 08/09/17 12:01 Zofran 4 Mg/2 Ml IVP 08/09/17 11:38 4 mg ONCE STA Administration Vital Signs: Temp Pulse Resp BP Pulse Ox 08/09/17 10:29 99.4 F 86 20 130/91 H 93 L Departure - Departure Time of Disposition: 13:00 Disposition: ADMITTED INPATIENT Discharge Problem: Vomiting, Coffee ground emesis Leukocytosis Qualifiers: Leukocytosis type: unspecified Qualified Code(s): D72.829 - Elevated white blood cell count, unspecified Instructions: Acute Nausea and Vomiting (ED) Condition: Good Pt referred to PMD for follow-up: Yes IPMP verified?: No Additional Instructions: Please call your Family Physician as soon as possible to schedule a follow-up appointment. Allergies/Adverse Reactions: Allergies aspirin Allergy (Mild, Verified 08/09/17 10:39) due to history of ulcers hydroxyzine HCl [From Atarax] Allergy (Mild, Verified 08/09/17 10:39) Foggy [id number] Reductase Inhibitor Allergy (Mild, Verified 08/09/17 10:39) due to ulcers baclofen Adverse Reaction (Verified 08/09/17 10:39) ranitidine [From Zantac] Adverse Reaction (Verified 08/09/17 10:39) Home Medications: Ambulatory Orders Omeprazole [Prilosec] 40 mg PO QDAC 08/26/16 Promethazine HCl [Phenergan Tab] 25 mg PO Q4HR PRN 08/29/16 Sucralfate [Carafate] 1 gm PO ACHS #120 tablet 08/31/16 Disposition Discussed With: Patient
[2017-08-09] MEDS ORDERED: ZOFRAN 4 MG/2 ML IVP PRN (13:59)
[2017-08-09] MEDS ORDERED: PROTONIX IV IVP SCH (14:00)
[2017-08-09 14:16] VITALS: BMI 26.5
[2017-08-09] MEDS: SODIUM CHLORIDE 0.9%-KCL 20 MEQ 1,000 ML IV SCH (14:19)
[2017-08-09] MEDS: PROTONIX IV IVP SCH ×2 (17:07→20:49)
[2017-08-09] MEDS: CARAFATE PO SCH ×2 (17:08→20:51)
[2017-08-09] MEDS: XANAX PO SCH (20:51)
[2017-08-09] MEDS ORDERED: NON-FORMULARY MEDICATION (Alprazolam [Xanax] 1 MG) PO SCH (21:00)
[2017-08-10] MEDS: SODIUM CHLORIDE 0.9%-KCL 20 MEQ 1,000 ML IV SCH ×2 (03:48→15:54)
[2017-08-10] MEDS: CARAFATE PO SCH ×4 (06:03→21:15)
[2017-08-10] MEDS ORDERED: PRILOSEC PO SCH (06:30)
[2017-08-10] MEDS: XANAX PO SCH ×2 (08:00→21:15)
[2017-08-10] MEDS: PROTONIX IV IVP SCH ×2 (09:20→21:16)
[2017-08-11] MEDS: CARAFATE PO SCH ×2 (05:56→10:14)
[2017-08-11] MEDS: SODIUM CHLORIDE 0.9%-KCL 20 MEQ 1,000 ML IV SCH (05:58)
[2017-08-11 06:03] VITALS: BP 126/77; TEMP 97.7
[2017-08-11] MEDS: XANAX PO SCH (08:09)
[2017-08-11] MEDS: PROTONIX IV IVP SCH (08:09)
--- NOTE | 2017-08-11 10:48 | PN ---
DATE OF SERVICE: 08/10/17 SUBJECTIVE: The patient was admitted with severe nausea, intractable nausea and vomiting and coffee ground emesis. Hgb did drop from the 15.3 to 13.1. Was able to take food fine. REVIEW OF SYSTEMS: CONSTITUTIONAL: No fever, no chills. HEENT: Normal. ENDOCRINE: No weight gain, no weight loss. CVS: No angina symptoms. No CHF symptoms. No palpitations. No atypical chest pain for CAD. No shortness of breath. No PND, no orthopnea. RESPIRATORY: No cough, no hemoptysis. GI: No nausea, no vomiting. No abdominal pain. : No hematuria. No polyuria. MUSCULOSKELETAL: No joint swelling. PSYCHIATRIC: Not anxious. No depression. No suicidal thoughts. No homicidal thoughts. SKIN: Intact. No rash. PHYSICAL EXAMINATION: V/S: Blood pressure 97/62, respiratory rate 20, heart rate 62, temperature 97.9 with saturation 96%. HEENT: Normocephalic, atraumatic. Mucosa dry. Pallor positive. NECK: Supple. No JVD, no carotid bruit. No lymphadenopathy. LUNGS: Clear to auscultation. No rales or rhonchi. HEART: S1, S2 normal. No S3. No murmur, gallop or regurgitation. ABDOMEN: Epigastric discomfort is present. Soft, nontender. Bowel sounds active. No rigidity. No rebound or guarding. No CVA tenderness. EXTREMITIES: No pedal edema. No clubbing or cyanosis MUSCULOSKELETAL: No joint swelling. NEUROLOGIC: Awake, alert, oriented times three. No focal deficit. LYMPHATIC: No lymph nodes palpable. SKIN: Intact. LABS: Sodium 141, potassium 3.5, chloride 109, bicarb 23, BUN 19, creatinine 1.12 and glucose 90. WBC 13.91, hgb 13.1, hct 39.3 and plt count 236. ASSESSMENT: 1. Hematemesis 2. Coffee ground emesis 3. Drop of Hbg, hemodilution versus blood loss 4. Leukocytosis from dehydration 5. History of Wise's Esophagus 6. History of musculoskeletal disorder L4 and L5 7. Lyme's disease 8. Lumbar Laminectomy PLAN: 1. Continue Protonix 2. H&H 3. IV fluids with Potassium TIME SPENT: More than 35 minutes MTDD
--- NOTE | 2017-10-05 13:57 | HP ---
DATE OF SERVICE: 08/09/17 CHIEF COMPLAINT: Bloody emesis and abdominal pain. HISTORY OF PRESENT ILLNESS: This is a 57-year-old male with history of Couch's esophagus, duodenal ulcer with history of GI bleed, came to the emergency room with nausea, vomitus of initially food material, water then started with coffee ground emesis times two on Wednesday. Two emesis on the day before. He was unable to drink or keep anything down and came to the emergency room. He was seen by Dr. Matson in the emergency room. Hemoglobin 15.3, white count 21,000. PT/INR was negative. Potassium 3.3. CT of the abdomen and pelvis was done which showed no acute abnormality. At that time, with the given history of ground glass emesis, history of GI bleed, the patient was admitted to the hospital for rehydration, Protonix and nausea, vomiting control. REVIEW OF SYSTEMS: CONSTITUTIONAL: Weakness, tiredness. No fever, no chills. HEENT: Normal. ENDOCRINE: No weight gain; no weight loss. CVS: No chest pain. No PND, no orthopnea. No shortness of breath. No PND, no orthopnea. RESPIRATORY: No cough, no congestion. No hemoptysis. GI: Nausea, vomiting. Abdominal pain. Coffee ground emesis. : No hematuria. No polyuria. MUSCULOSKELETAL: Chronic back pain for which he goes to [facility]. PSYCHIATRIC: Not anxious. No depression. No suicidal thoughts. No homicidal thoughts. SKIN: Intact, no open lesions. PAST MEDICAL HISTORY: COPD Couch's esophagus Hiatal hernia GERD Osteoarthritis DJD spine Anxiety History of Lyme's disease PAST SURGICAL HISTORY: Lumbar laminectomy Bronchoscopy Abscess in the right lung, drained PERSONAL HISTORY: , lives with . Smokes one pack per day for 40 years. No alcohol. No ilicit drug use. FAMILY HISTORY: Significant for heart problems. MEDICATIONS: (HOME) Xanax Prilosec Phenergan Carafate ALLERGIES: ASPIRIN, HYDROXYZINE PHYSICAL EXAMINATION: V/S: BP 130/91, respiratory rate 20, heart rate 86, temperature 99.4, saturation 93. GENERAL: Sick looking male lying in bed. HEENT: Atraumatic, normocephalic. No scleral icterus. Mucosa dry. NECK: Supple. No JVD, no bruit. No lymphadenopathy. No thyromegaly. HEART: S1, S2 normal. No murmur. No cyanosis or clubbing. No ascites. LUNGS: Decreased and clear to auscultation. No rales or rhonchi. ABDOMEN: Soft. Epigastric tenderness, guarding is present. Bowel sounds are sluggish. No CVA tenderness. No rigidity or guarding. EXTREMITIES: No pedal edema. No cyanosis or clubbing MUSCULOSKELETAL: Normal joints, no swelling. NEUROLOGIC: The patient is awake and alert. SKIN: Intact; no open lesions. LYMPHATIC: No lymph nodes palpable. LABS: Sodium 141, potassium 3.3, chloride 101, bicarb 25, BUN 18, creatinine 1.36. White count 21.15, hemoglobin 15.3, hematocrit 45.6, platelet count 324. ASSESSMENT: 1. ACUTE INTRACTABLE NAUSEA AND VOMITING, GROUND GLASS EMESIS, RULE OUT GI BLEED 2. HISTORY OF COUCH'S ESOPHAGUS 3. HISTORY OF DUODENAL ULCER 4. DJD SPINE PLAN: 1. Admit patient to the regular floor 2. CBC, CMP today and daily 3. Zofran 4. Protonix 5. IV fluids 6. Carafate TIME SPENT: MORE THAN 75 minutes MTDD
--- NOTE | 2017-10-05 14:16 | DS ---
DATE OF SERVICE: 08/11/17 FINAL DIAGNOSIS: 1. UPPER GI BLEED WITH HEMATEMESIS, COFFEE GROUND (STABLE HEMOGLOBIN) 2. LEUKOCYTOSIS 3. SEVERE DEHYDRATION 4. HISTORY OF PALMIRA'S ESOPHAGUS 5. HISTORY OF UPPER GI BLEED, NEVER REQUIRED TRANSFUSION 6. GERD 7. HIATAL HERNIA 8. PEPTIC ULCER DISEASE 9. CHRONIC BACK AND HIP PAIN 10. DJD SPINE 11. STATUS POST LUMBAR SURGERIES 12. COPD 13. PANIC ATTACK 14. OCCASIONAL MARIJUANA USE 15. HEAVY SMOKER DISCHARGE INSTRUCTIONS: Followup appointment - [facility]. The patient is to have outpatient endoscopy to recheck Wise's esophagus. He has to find a new GI doctor as the former GI doctor will not accept the patient's insurance. MEDICATIONS AT DISCHARGE: Continue Prilosec 40 mg twice a day Xanax Prilosec NEW PRESCRIPTIONS: Carafate 1 gm, take one tablet before meals and at bedtime DIET INSTRUCTIONS: [place] foods Nothing spicy ACTIVITY: Get plenty of rest at home. Gradually increase your activity level according to your toleration. DISEASE SPECIFIC EDUCATION: GI bleed, peptic ulcer disease discussed, verbalized understanding. HOSPITAL COURSE: This is a 57-year-old male with history of Wise's esophagus and peptic ulcer disease came to the emergency room with nausea, vomiting, coffee ground emesis with a white count of 21,000. The patient was admitted to the hospital. He was started on IV fluids, Protonix and Carafate. With the given treatment, the patient slowly calmed down. The patient was kept NPO> Hemoglobin dropped to 15.3 , 13.1 and 12.4. White count dropped to normal. No source of infection was found. Potassium was corrected. BUN and creatinine were stable. Gradually the patient was able to tolerate a soft diet. At that time the patient was discharged home. TIME SPENT: MORE THAN 65 MINUTES MTDD
== END 2017-08-11 12:30 | disposition home or self-care (01) | DRG 391 ==
LOC: ED 10:29 → MEDSURG B 13:33
PROVIDERS: ADMIT Emergency Medicine; ATTEND Emergency Medicine
DX: R11.2 Nausea with vomiting, unspecified (principal); K26.4 Chronic or unspecified duodenal ulcer with hemorrhage; K92.0 Hematemesis; A69.20 Lyme disease, unspecified; D72.829 Elevated white blood cell count, unspecified; K22.70 Barrett's esophagus without dysplasia; K26.9 Duodenal ulcer, unspecified as acute or chronic, without hemorrhage or perforation; Z72.0 Tobacco use; M47.9 Spondylosis, unspecified; R10.13 Epigastric pain; E86.0 Dehydration; K44.9 Diaphragmatic hernia without obstruction or gangrene; K21.9 Gastro-esophageal reflux disease without esophagitis; M54.9 Dorsalgia, unspecified; J44.9 Chronic obstructive pulmonary disease, unspecified; F41.0 Panic disorder [episodic paroxysmal anxiety]; Z98.890 Other specified postprocedural states
CPT/HCPCS: 36415; 80053; 81001; 84145; 85025; 85610; 85730; 87040; 96374; 99223; 99233; 99239; 99284

== ENCOUNTER 2018-02-28 08:51 | Outpatient (CLI) | payer OTHER | END 2018-02-28 08:52 | disposition home or self-care (01) | LOC: LAB 08:51 | PROVIDERS: ATTEND Physician Assistant | DX: E78.5 Hyperlipidemia, unspecified (principal) | CPT/HCPCS: 36415; 80061 ==

== ENCOUNTER 2018-11-29 14:27 | Emergency (ER) ==
[2018-11-29 14:33] VITALS: BP 121/87; TEMP 98.1; BMI 28.0
--- NOTE | 2018-11-29 15:41 | ED.PDOC ---
General ED Provider: Dr. BARBARA KUMAR Chief Complaint: Chest Wall Injury/Pain Stated Complaint: Rt Lat Rib cage region and RUQ. Denies Nausea or vomiting.Last intake -late morning. No hx of injury. Patient complains of right side rib cage pain-region of the 8th -9th rib. Stated pain started approximately 10 days ago. Patient stated pain in right rib cage at about the 8th rib area. Patient stated he has a rash and random nausea along with the rib cage pain. Patient denies any injury or recent illness. Time Seen by Physician: 15:10 Mode of Arrival: Walk-In Information Source: Patient Exam Limitations: No limitations Primary Care Provider: MARIAELENA KEANE Nursing and Triage Documentation Reviewed and Agree: Yes Does patient meet sepsis criteria?: No System Inflammatory Response Syndrome: Not Applicable Sepsis Protocol: For patient's 13 years and over: Temp is 96.8 and below OR 101 and greater Pulse >90 BPM Resp >20/minute Acutely Altered Mental Status Are patient's symptoms suggestive of a new infection, such as: -Pneumonia -Skin, Soft Tissue -Endocarditis -UTI -Bone, Joint Infection -Implantable Device -Acute Abdominal Infection -Wound Infection -Meningitis -Blood Stream Catheter Infection -Unknown Musculoskeletal Complaint Exam - Back Pain Complaint/Exam Mechanism of Injury: Reports: No known trauma Onset/Duration: several weeks Symptoms Are: Still present Timing: Intermittent Episodes Lasting: Hours Initial Severity: Moderate Current Severity: Moderate Location: Reports: Discrete (Rt intercostal region) Character: Reports: Sharp, Dull, Aching, Spasmodic, Stiffness Aggravating: Reports: Movements, Lifting, Bending, Walking, Cough Alleviating: Reports: None Associated Signs and Symptoms: Denies: Swelling, Redness, Bruising, Fever, Weakness, Numbness, Abdominal pain, Flank pain, Bladder incontinence, Bowel incontinence, Weight loss, Pain with weight bearing Related History: Reports: Previous back injury TAD Risk Factors: Reports: None AAA Risk Factors: Reports: None Cauda Equina Risk Factors: Reports: None Epidural Abcess Risk Factors: Reports: None Related Surgical History: Reports: None Focal Tenderness: Yes Paraspinal Muscle Tenderness: No Paraspinal Muscle Spasm: No Scoliosis: No Lordosis: No Kyphosis: No SLR Test: Right Negative, Left Negative Hip Motion Testing Pain: Right Negative, Left Negative Focal Weakness: Present: None Focal Sensory Loss: Present: None Gait: Present: Unsteady Differential Diagnoses: Strain, Other (intercostal strain ) Review of Systems - Review Of Systems Constitutional: Reports: No symptoms Eyes: Reports: No symptoms Ears, Nose, Mouth, Throat: Reports: No symptoms Respiratory: Reports: No symptoms Cardiac: Reports: No symptoms GI: Reports: No symptoms : Reports: No symptoms Musculoskeletal: Reports: Back pain Skin: Reports: No symptoms Neurological: Reports: No symptoms Endocrine: Reports: No symptoms Hematologic/Lymphatic: Reports: No symptoms All Other Systems: Reviewed and Negative Past Medical History - Past Medical History Previously Healthy: Yes Endocrine: Reports: None Cardiovascular: Reports: None Respiratory: Reports: None Hematological: Reports: None Gastrointestinal: Reports: PUD (ulcers, barretts esophagus) Genitourinary: Reports: None Neuro/Psych: Reports: None Musculoskeletal: Reports: None Cancer: Reports: None Other Pertinent Past Medical History: spine and hip problems - Surgical History General Surgical History: Reports: Back Surgery (back diskectomy L4-L5) - Family History Family History: Reports: Unknown - Social History Smoking Status: Current every day smoker, Light tobacco smoker Hx Substance Use: No Alcohol Screening: None - Immunizations Tetanus Shot up to Date: Yes Physical Exam - Physical Exam Appearance: Well-appearing, No pain distress, Well-nourished Eyes: LISETH, EOMI, Conjunctiva clear ENT: Ears normal, Nose normal, Oropharynx normal Respiratory: Airway patent, Breath sounds clear, Breath sounds equal, Respirations nonlabored Cardiovascular: RRR, Pulses normal, No rub, No murmur GI/: Soft, Nontender, No masses, Bowel sounds normal, No Organomegaly Musculoskeletal: Normal strength, ROM intact, No edema, No calf tenderness Skin: Warm, Dry, Normal color Neurological: Sensation intact, Motor intact, Reflexes intact, Cranial nerves intact, Alert, Oriented Psychiatric: Affect appropriate, Mood appropriate Interpretation - Radiology Interpretation Radiology Interpretation By: ED Physician (CT-No acute findings. non specific colonic findings not correlating with patients symptoms) Xray Comments: rib xrays no acute findings Critical Care Note - Critical Care Note Total Time (mins): 0 Course - Course Hematology/Chemistry: 11/29/18 15:57 11/29/18 15:57 Orders, Labs, Meds: Lab Review 11/29/18 11/29/18 15:57 15:57 WBC 8.41 RBC 5.20 Hgb 14.7 Hct 45.1 MCV 86.7 MCH 28.3 MCHC 32.6 RDW Coeff of Jose 14.2 Plt Count 263 Immature Gran % (Auto) 0.2 Neut % (Auto) 70.2 Lymph % (Auto) 19.6 [place] % (Auto) 7.3 Eos % (Auto) 2.0 Baso % (Auto) 0.7 Immature Gran # (Auto) 0.0 Neut # (Auto) 5.9 Lymph # (Auto) 1.7 [place] # (Auto) 0.6 Eos # (Auto) 0.2 Baso # (Auto) 0.1 Sodium 140.6 Potassium 4.07 Chloride 103.7 Carbon Dioxide 27.5 Anion Gap 13.47 BUN 10.8 Creatinine 1.17 H Estimated GFR (MDRD) 64.00 BUN/Creatinine Ratio 9.23 Glucose 84.8 Calcium 9.26 Total Bilirubin 0.43 AST 22.7 ALT 19.6 Alkaline Phosphatase 49.4 L Total Protein 7.16 Albumin 4.20 Globulin 2.96 Albumin/Globulin Ratio 1.41 Orders Category Date Time Status CBC W/ AUTO DIFF Stat LAB 11/29/18 15:57 Completed CMP [COMPREHENSIVE METABOLIC PANEL] Stat LAB 11/29/18 15:57 Completed LYME, WESTERN BLOT, SERUM Stat LAB 11/29/18 15:[address] ABDOMEN/PELVIS WO CONTRAST Stat RADS 11/29/18 15:44 Completed RIBS, UNILATERAL RIGHT Stat RADS 11/29/18 15:44 Ordered Vital Signs: Temp Pulse Resp BP Pulse Ox 11/29/18 14:28 98.1 F 92 H 18 121/87 95 Departure - Departure Time of Disposition: 17:30 Disposition: HOME SELF-CARE Discharge Problem: Intercostal muscle strain Instructions: Chest Pain (ED) Condition: Good Pt referred to PMD for follow-up: Yes IPMP verified?: No Additional Instructions: May take Tylenol routine for pain Apply warm moist heat alternating with ice for pain follow up pcp in 1 wk Allergies/Adverse Reactions: Allergies aspirin Allergy (Mild, Verified 08/09/17 10:39) due to history of ulcers hydroxyzine HCl [From Atarax] Allergy (Mild, Verified 08/09/17 10:39) Foggy Dkxyfiy-Pbg-Tpc Reductase Inhibitor Allergy (Mild, Verified 08/09/17 10:39) due to ulcers baclofen Adverse Reaction (Verified 08/09/17 10:39) ranitidine [From Zantac] Adverse Reaction (Verified 08/09/17 10:39) Home Medications: Ambulatory Orders Omeprazole [Prilosec] 20 mg PO BIDAC 11/29/18 Sucralfate [Carafate] 1 gm PO ACHS PRN 11/29/18 Disposition Discussed With: Patient, Family (States had previous Colonoscopy and EGCD in Past)
--- NOTE | 2018-11-29 16:38 | CT ---
EXAM: CT abdomen pelvis without contrast HISTORY: Pain right upper quadrant COMPARISON: 08/09/2017 TECHNIQUE: CT abdomen pelvis performed without intravenous contrast. Coronal and sagittal reformatt ed images obtained. FINDINGS: Lung bases clear. No free air. No acute abnormalities of the bones. Degenerative change in the spine. Left-sided pars defect L5 with grade 1 anterolisthesis of five on S1. Heart normal i n size. Evaluation organ parenchyma limited without contrast. Liver unremarkable. Gallbladder unre markable. Pancreas unremarkable. Spleen unremarkable. Adrenals unremarkable. Kidneys unremarkable . Aorta normal in caliber. Moderate atherosclerosis. No lymphadenopathy or ascites. Bladder unrem arkable. Prostate normal in size. Small fat-containing periumbilical hernia. Stomach unremarkable. No dilated loops small bowel. Appendix appears normal. Increase submucosal fat deposition in the terminal ileum and colon. No inflammatory stranding identified in the abdomen or pelvis. IMPRESSION: 1. No acute inflammatory process identified in the abdomen or pelvis. 2. Atherosclerosis. 3. Increased submucosal fat deposition in the terminal ileum and colon, a finding that can be seen i n sequela of remote infection or inflammation.
--- NOTE | 2018-11-30 13:21 | DI ---
Exam: Four views of the right ribs. Comparison: 03/18/2018. Reason for exam: Rib pain and chest wall pain. FINDINGS: No right-sided pneumothorax, pleural effusion, or focal airspace consolidation. The cardi ac silhouette is not enlarged. No displaced right-sided rib fractures are seen. The right clavicle appears intact Impression: No displaced right-sided rib fractures are seen.
== END 2018-11-29 17:53 | disposition home or self-care (01) ==
LOC: ED 14:27
DX: S29.011A Strain of muscle and tendon of front wall of thorax, initial encounter (principal); X50.1XXA Overexertion from prolonged static or awkward postures, initial encounter; R21 Rash and other nonspecific skin eruption; R11.0 Nausea; F17.210 Nicotine dependence, cigarettes, uncomplicated
CPT/HCPCS: 36415; 80053; 85025; 86617; 99283

== ENCOUNTER 2021-09-20 12:25 | Observation (INO) ==
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
[2021-09-20] MEDS ORDERED: SODIUM CHLORIDE 1,000 ML IV STA (13:28)
[2021-09-20] MEDS ORDERED: SODIUM CHLORIDE 500 ML IV STA (13:45)
--- NOTE | 2021-09-20 13:50 | DI ---
EXAM: Radiographs, left elbow HISTORY: Left elbow insect bite, cellulitis. COMPARISON: None. TECHNIQUE: Three views. FINDINGS: There is subcutaneous edema along the ulnar and posterior aspect of the elbow. No subcuta neous air or osseous destruction. Bone mineralization normal. No fracture or dislocation. No joint effusion. IMPRESSION: Soft tissue swelling without acute osseous abnormality.
[2021-09-20 13:55] LABS: BASOPHILS # (AUTO) 0.1 K/uL (0-0.2); BASOPHILS % (AUTO) 0.9 % (0.0-3.0); EOSINOPHILS # (AUTO) 0.4 K/ul (0.0-0.7); EOSINOPHILS % (AUTO) 4.5 % (0.0-7.0); HEMATOCRIT 45.2 % (42.0-52.0); HEMOGLOBIN 15.1 g/dl (14.0-18.0); IMMATURE GRANULOCYTE % (AUTO) 0.2 % (0.0-5.0); LYMPHOCYTES # (AUTO) 1.3 K/uL (0.60-3.4); LYMPHOCYTES % (AUTO) 16.2 (10.0-50.0); MEAN CORPUSCULAR HEMOGLOBIN 28.6 pg (27.0-31.0); MEAN CORPUSCULAR HGB CONC 33.4 (31.8-35.4); MEAN CORPUSCULAR VOLUME 85.6 fl (80.0-94.0); MONOCYTES # (AUTO) 0.5 K/uL (0.4-2.0); MONOCYTES % (AUTO) 6.6 (0-10); NEUTROPHILS # (AUTO) 5.8 K/ul (2.0-6.9); NEUTROPHILS % (AUTO) 71.6 % (42.2-75.2); PLATELET COUNT 289 10^3/uL (140-440); RDW COEFFICIENT OF VARIATION 13.8 % (11.6-14.8); RED BLOOD COUNT 5.28 10^6/ul (4.70-6.10); WHITE BLOOD COUNT 8.07 K/ul (4.2-10.2)
[2021-09-20 14:05] LABS: ALANINE AMINOTRANSFERASE 14.9 U/L (0-50); ALBUMIN 4.21 g/dL (3.5-5.0); ALKALINE PHOSPHATASE 50.2 U/L (56-119); ASPARTATE AMINO TRANSFERASE 26.4 U/L (17-59); BILIRUBIN,TOTAL 0.69 mg/dL (0.2-1.3); BLOOD UREA NITROGEN 7.8 mg/dL (9-20); CALCIUM 8.91 mg/dL (8.4-10.2); CARBON DIOXIDE 23.7 mmol/L (22-30.0); CHLORIDE 107.9 mmol/L (98-107); CREATININE 1.04 mg/dL (0.60-1.10); GLUCOSE 98.7 mg/dL (74-106); POTASSIUM 4.4 mmol/L (3.5-5.1); SODIUM 137.3 mmol/L (134.5-145); TOTAL PROTEIN 6.94 g/dL (6.3-8.2)
[2021-09-20] MEDS ORDERED: ANCEF 1 GM in SODIUM CHLORIDE 50 ML IV STA (14:07)
[2021-09-20] MEDS ORDERED: ANCEF ONE (14:10)
[2021-09-20] MEDS ORDERED: TYLENOL PO PRN (14:17)
[2021-09-20] MEDS ORDERED: ZOFRAN TAB PO PRN (14:33)
[2021-09-20] MEDS ORDERED: CARAFATE PO PRN (14:33)
[2021-09-20] MEDS ORDERED: PEPCID PO PRN (14:33)
[2021-09-20] MEDS ORDERED: VANCOMYCIN 1.5 GRAM/300 ML PREMIX 1.5 GM/300 ML BAG IV SCH (15:00)
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
[2021-09-20 15:41] VITALS: BMI 25.8
[2021-09-20] MEDS: XANAX PO SCH ×2 (15:54→20:30)
[2021-09-20] MEDS ORDERED: VANCOMYCIN IV ONE (16:00)
[2021-09-20] MEDS ORDERED: VANCOMYCIN 750 MG/150 ML BAG 750 MG/150 ML BAG IV SCH ×3 (16:17→17:30)
[2021-09-20] MEDS ORDERED: TENIVAC IM ONE ×2 (17:34→20:41)
[2021-09-20] MEDS: ANCEF 1 GM/50 ML D5W 1 GM/50 ML BAG IV SCH (20:30)
[2021-09-21] MEDS ORDERED: VANCOMYCIN IV SCH (02:30)
[2021-09-21] MEDS ORDERED: VANCOMYCIN 750 MG/150 ML BAG 750 MG/150 ML BAG IV SCH ×2 (02:30)
[2021-09-21 05:04] LABS: BASOPHILS # (AUTO) 0.1 K/uL (0-0.2); BASOPHILS % (AUTO) 0.8 % (0.0-3.0); EOSINOPHILS # (AUTO) 0.6 K/ul (0.0-0.7); HEMATOCRIT 44.7 % (42.0-52.0); HEMOGLOBIN 14.5 g/dl (14.0-18.0); IMMATURE GRANULOCYTE % (AUTO) 0.4 % (0.0-5.0); LYMPHOCYTES # (AUTO) 2.3 K/uL (0.60-3.4); LYMPHOCYTES % (AUTO) 24.9 (10.0-50.0); MEAN CORPUSCULAR HEMOGLOBIN 28.3 pg (27.0-31.0); MEAN CORPUSCULAR HGB CONC 32.4 (31.8-35.4); MEAN CORPUSCULAR VOLUME 87.3 fl (80.0-94.0); MONOCYTES # (AUTO) 0.7 K/uL (0.4-2.0); MONOCYTES % (AUTO) 7.3 (0-10); NEUTROPHILS # (AUTO) 5.4 K/ul (2.0-6.9); NEUTROPHILS % (AUTO) 59.6 % (42.2-75.2); PLATELET COUNT 244 10^3/uL (140-440); RDW COEFFICIENT OF VARIATION 13.7 % (11.6-14.8); RED BLOOD COUNT 5.12 10^6/ul (4.70-6.10); WHITE BLOOD COUNT 9.02 K/ul (4.2-10.2)
[2021-09-21 05:17] LABS: ALANINE AMINOTRANSFERASE 13.4 U/L (0-50); ALBUMIN 3.74 g/dL (3.5-5.0); ALKALINE PHOSPHATASE 42.4 U/L (56-119); ASPARTATE AMINO TRANSFERASE 22.7 U/L (17-59); BILIRUBIN,TOTAL 0.58 mg/dL (0.2-1.3); BLOOD UREA NITROGEN 8.1 mg/dL (9-20); CALCIUM 8.65 mg/dL (8.4-10.2); CARBON DIOXIDE 27.4 mmol/L (22-30.0); CHLORIDE 107.8 mmol/L (98-107); CREATININE 1.11 mg/dL (0.60-1.10); GLUCOSE 88.7 mg/dL (74-106); POTASSIUM 4.28 mmol/L (3.5-5.1); SODIUM 138.4 mmol/L (134.5-145); TOTAL PROTEIN 6.18 g/dL (6.3-8.2)
[2021-09-21] MEDS: ANCEF 1 GM/50 ML D5W 1 GM/50 ML BAG IV SCH ×3 (05:42→20:14)
[2021-09-21] MEDS: XANAX PO SCH ×3 (08:58→20:13)
[2021-09-21] MEDS: PROTONIX PO SCH (08:58)
--- NOTE | 2021-09-21 11:13 | PCM.PROG ---
Date Seen by Provider: 09/21/21 Time Seen by Provider: 11:11 Subjective: improved left arm pain and redness Objective: Vitals: T=97.2 F, P=56, R=18, ZN=402/73, SPO2=94 HEENT: []conjunctiva clear Neck: []supple Lungs: [] no respiratory distress CVS: [] Abdomen: [] Extremities: []silvia Neurological: []alert and oriented Skin: []dry Lab/Tests/Diagnostic Imaging: [] wbc 9 today (1) Cellulitis of arm, left: Status: Acute Code(s): L03.114 - Cellulitis of left upper limb SNOMED Code(s): 407784387 Plan: continue iv ancef and pharm dosing vanc care to Dr Banks at 19:00
[2021-09-21] MEDS: VANCOMYCIN IV SCH ×2 (11:45→20:58)
[2021-09-21 21:15] VITALS: TEMP 98
[2021-09-22 05:10] LABS: BASOPHILS # (AUTO) 0.1 K/uL (0-0.2); BASOPHILS % (AUTO) 0.7 % (0.0-3.0); EOSINOPHILS # (AUTO) 0.7 K/ul (0.0-0.7); EOSINOPHILS % (AUTO) 7.4 % (0.0-7.0); HEMATOCRIT 44.5 % (42.0-52.0); HEMOGLOBIN 14.7 g/dl (14.0-18.0); IMMATURE GRANULOCYTE % (AUTO) 0.2 % (0.0-5.0); LYMPHOCYTES % (AUTO) 22.2 (10.0-50.0); MEAN CORPUSCULAR HEMOGLOBIN 28.3 pg (27.0-31.0); MEAN CORPUSCULAR VOLUME 85.7 fl (80.0-94.0); MONOCYTES # (AUTO) 0.6 K/uL (0.4-2.0); MONOCYTES % (AUTO) 6.2 (0-10); NEUTROPHILS # (AUTO) 5.7 K/ul (2.0-6.9); NEUTROPHILS % (AUTO) 63.3 % (42.2-75.2); PLATELET COUNT 247 10^3/uL (140-440); RDW COEFFICIENT OF VARIATION 13.6 % (11.6-14.8); RED BLOOD COUNT 5.19 10^6/ul (4.70-6.10)
[2021-09-22 05:17] VITALS: BP 121/73
[2021-09-22 05:21] LABS: ALANINE AMINOTRANSFERASE 11.6 U/L (0-50); ALBUMIN 3.72 g/dL (3.5-5.0); ALKALINE PHOSPHATASE 44.4 U/L (56-119); ASPARTATE AMINO TRANSFERASE 22.4 U/L (17-59); BILIRUBIN,TOTAL 0.55 mg/dL (0.2-1.3); BLOOD UREA NITROGEN 10.2 mg/dL (9-20); CALCIUM 8.4 mg/dL (8.4-10.2); CARBON DIOXIDE 23.7 mmol/L (22-30.0); CHLORIDE 109.1 mmol/L (98-107); CREATININE 1.11 mg/dL (0.60-1.10); GLUCOSE 98.3 mg/dL (74-106); POTASSIUM 4.02 mmol/L (3.5-5.1); SODIUM 135.7 mmol/L (134.5-145); TOTAL PROTEIN 6.28 g/dL (6.3-8.2)
[2021-09-22] MEDS: ANCEF 1 GM/50 ML D5W 1 GM/50 ML BAG IV SCH (05:29)
[2021-09-22] MEDS: VANCOMYCIN IV SCH (09:30)
[2021-09-22] MEDS: XANAX PO SCH (09:30)
[2021-09-22] MEDS: PROTONIX PO SCH (09:30)
--- NOTE | 2021-09-22 11:37 | PCM.PROG ---
Date Seen by Provider: 09/22/21 Time Seen by Provider: 10:30 Subjective: Patient feeling much better. He reports less swelling and erythema of the arm. He has no complaints. Objective: Vitals: T=98.0 F, P=74, R=18, IY=181/73, SPO2=97 Patient appears to be well. Alert and in NAD. HEENT: [] Neck: [] Lungs: [] CVS: [] Abdomen: [] Extremities: []Some induration at the site of the spider bite. No drainage or fluctuance. Mild surrounding erythema. Neurological: [] Skin: [] Lab/Tests/Diagnostic Imaging: [] (1) Cellulitis of arm, left: Status: Acute Code(s): L03.114 - Cellulitis of left upper limb SNOMED Code(s): 175650297 Assessment: Cellulitis resolving. (2) Brown recluse spider bite: Status: Acute Code(s): T63.331A - Toxic effect of venom of brown recluse spider, accidental (unintentional), initial encounter SNOMED Code(s): 535771170 Assessment: No tissue necrosis or abscess noted. Plan: Will discharge patient home on cephalexin for one week.
--- NOTE | 2021-09-22 14:06 | PCM.DC ---
Final Diagnosis: brown recluse spider bite cellulitis left arm Physical Exam Appearance: Well-appearing and Well-nourished Ill-appearing: None Pain Distress: None Eyes: Not Examined ENT: Not Examined Neck: Not Examined Respiratory: Not Examined Cardiovascular: Not Examined GI/: Not Examined Musculoskeletal: Other (Site of spider bite left arm with induration, but no drainage or fluctuance. Mild erythema surrounding the bite.) Skin: Warm and Dry Neurological: Sensation intact, Motor intact, Alert and Oriented Psychiatric: Affect appropriate and Mood appropriate (1) Cellulitis of arm, left: Status: Acute Code(s): L03.114 - Cellulitis of left upper limb SNOMED Code(s): 713169702 (2) Brown recluse spider bite: Status: Acute Code(s): T63.331A - Toxic effect of venom of rebeca desailuse spider, accidental (un intentional), initial encounter SNOMED Code(s): 434744451 Reason for Hospitalization: Cellulitis of left arm secondary to spider bite. Prognosis/Condition at Discharge: Condition at discharge was good. Prognosis excellent for full recovery. Medications at Discharge: Ambulatory Orders Medication Instructions Recorded alprazolam 1 mg tablet (Xanax) 0.5 mg PO TID #60 tab-cap 12/17/15 sucralfate 1 gram tablet 1 g PO ACHS PRN 11/29/18 cholecalciferol (vitamin D3) 1,250 1,250 mcg PO WEEKLY 10/02/20 mcg (50,000 unit) capsule ondansetron HCl 4 mg tablet 4 mg PO Q8H PRN 11/21/20 (Zofran) acetaminophen 325 mg capsule 650 mg PO Q8HR PRN #20 cap 01/10/21 (Tylenol) promethazine 25 mg tablet 25 mg PO Q6H PRN #30 tab 04/16/21 famotidine 40 mg tablet 40 mg PO BEDTIME PRN 09/20/21 pantoprazole 40 mg tablet,delayed 40 mg PO DAILY 09/20/21 release cephalexin 250 mg/5 mL oral 250 mg (5 mL) PO QID #140 ml 09/22/21 suspension Education Provided to Patient and Family: Information on cellulitis. Follow-ups: Patient instructed to follow up with his primary care provider within the next week. Discharge Disposition: Home Hospital Course: Patient admitted with cellulitis of left arm secondary to a brown recluse spider bite. He was placed on antibiotics and the cellulitis was noted to improve dramatically by the time of discharge. There were no complications during his hospitalization. Plan: Patient discharged on cephalexin and to follow up with his PCP within one week.
[2021-09-22] MEDS ORDERED: VANCOMYCIN 1.5 GRAM/300 ML PREMIX 1.5 GM/300 ML BAG IV SCH ×2 (21:00)
== END 2021-09-22 13:13 | disposition home or self-care (01) ==
LOC: ED 12:25 → MEDSURG A 12:25
PROVIDERS: ADMIT Emergency Medicine; ATTEND Surgery
DX: L03.114 Cellulitis of left upper limb; Z51.81 Encounter for therapeutic drug level monitoring; T63.331A Toxic effect of venom of brown recluse spider, accidental (unintentional), initial encounter; Z79.899 Other long term (current) drug therapy; Z20.822 Contact with and (suspected) exposure to COVID-19

== ENCOUNTER 2022-07-12 19:06 | Observation (INO) ==
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
[2022-07-12] MEDS ORDERED: SODIUM CHLORIDE 1,000 ML IV STA ×2 (20:02→22:31)
[2022-07-12] MEDS ORDERED: PROTONIX IV IVP STA (20:03)
[2022-07-12] MEDS ORDERED: ZOFRAN 4 MG/2 ML IVP STA (20:09)
[2022-07-12 20:30] LABS: PROTHROMBIN TIME 10.1 SEC (9.3-11.0)
[2022-07-12 20:31] LABS: ALANINE AMINOTRANSFERASE 21.4 U/L (0-50); ALBUMIN 4.01 g/dL (3.5-5.0); ALKALINE PHOSPHATASE 39.7 U/L (56-119); ASPARTATE AMINO TRANSFERASE 20.5 U/L (17-59); BILIRUBIN,TOTAL 0.55 mg/dL (0.2-1.3); BLOOD UREA NITROGEN 8.4 mg/dL (9-20); CALCIUM 8.81 mg/dL (8.4-10.2); CARBON DIOXIDE 31.4 mmol/L (22-30.0); CHLORIDE 101.8 mmol/L (98-107); CREATININE 1.01 mg/dL (0.60-1.10); GLUCOSE 116.1 mg/dL (74-106); LIPASE 427.3 U/L (23-300); POTASSIUM 3.54 mmol/L (3.5-5.1); SODIUM 135.9 mmol/L (134.5-145); TOTAL PROTEIN 6.65 g/dL (6.3-8.2)
[2022-07-12 20:43] LABS: TROPONIN I < 0.012 ng/ml (0.0000-0.120)
[2022-07-12 21:32] LABS: BASOPHILS # (AUTO) 0.1 K/uL (0-0.2); BASOPHILS % (AUTO) 0.8 % (0.0-3.0); EOSINOPHILS % (AUTO) 0.4 % (0.0-7.0); HEMATOCRIT 44.5 % (42.0-52.0); HEMOGLOBIN 14.9 g/dl (14.0-18.0); IMMATURE GRANULOCYTE % (AUTO) 0.3 % (0.0-5.0); LYMPHOCYTES # (AUTO) 1.4 K/uL (0.60-3.4); LYMPHOCYTES % (AUTO) 14.8 (10.0-50.0); MEAN CORPUSCULAR HGB CONC 33.5 (31.8-35.4); MEAN CORPUSCULAR VOLUME 86.7 fl (80.0-94.0); MONOCYTES # (AUTO) 0.6 K/uL (0.4-2.0); MONOCYTES % (AUTO) 6.2 (0-10); NEUTROPHILS # (AUTO) 7.1 K/ul (2.0-6.9); NEUTROPHILS % (AUTO) 77.5 % (42.2-75.2); PLATELET COUNT 347 10^3/uL (140-440); RDW COEFFICIENT OF VARIATION 13.3 % (11.6-14.8); RED BLOOD COUNT 5.13 10^6/ul (4.70-6.10); WHITE BLOOD COUNT 9.14 K/ul (4.2-10.2)
--- NOTE | 2022-07-12 23:12 | CT ---
EXAM: CT OF THE ABDOMEN PELVIS WITHOUT CONTRAST History: Abdominal pain. Comparison: CT abdomen pelvis 07/10/2022 Technique: Multiplanar CT images through the abdomen pelvis were obtained without the administration of IV contrast Findings: Lung bases are clear. No acute osseous abnormalities. Degenerative changes at L5-S1. Probable gallbladder sludge. No liver or splenic lesions. No peripancreatic inflammation. Adrenal glands are unremarkable. No renal stones and no hydronephrosis. Appendix is normal. Atheroscleroti c vascular calcifications. No bowel obstruction. No bladder wall thickening. Prostate is not enlar ged. No perirectal inflammation. Submucosal fat deposition within ortega of the colon. No acute per icolonic inflammation. No lymphadenopathy. No free air and no ascites. Small fat-containing umbili emmy hernia. Impression: 1. No acute intra-abdominal or pelvic process. 2. Probable gallbladder sludge. 3. Atherosclerotic vascular disease. 4. Submucosal fat deposition within ortega of the colon suggesting prior episodes of inflammation. T here is no evidence for acute colitis All CT scans are performed using dose optimization techniques as appropriate to the performed exam an d include at least one of the following: Automated exposure control, adjustment of the mA and/or kV according t o size, and the use of iterative reconstruction technique.
[2022-07-13 00:08] LABS: SARS COV-2 RNA RAPID NAAT NEGATIVE (NEGATIVE)
[2022-07-13] MEDS ORDERED: TYLENOL PO PRN (01:19)
[2022-07-13] MEDS ORDERED: XANAX PO PRN (01:34)
[2022-07-13] MEDS ORDERED: ZOFRAN 4 MG/2 ML IVP PRN (01:37)
[2022-07-13 01:54] VITALS: BMI 23.9
[2022-07-13] MEDS: SODIUM CHLORIDE 1,000 ML IV SCH ×2 (02:40→11:55)
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
[2022-07-13 05:31] LABS: BASOPHILS # (AUTO) 0.1 K/uL (0-0.2); BASOPHILS % (AUTO) 0.5 % (0.0-3.0); EOSINOPHILS # (AUTO) 0.2 K/ul (0.0-0.7); EOSINOPHILS % (AUTO) 2.4 % (0.0-7.0); HEMATOCRIT 40.5 % (42.0-52.0); HEMOGLOBIN 13.3 g/dl (14.0-18.0); IMMATURE GRANULOCYTE % (AUTO) 0.3 % (0.0-5.0); LYMPHOCYTES % (AUTO) 31.3 (10.0-50.0); MEAN CORPUSCULAR HEMOGLOBIN 28.6 pg (27.0-31.0); MEAN CORPUSCULAR HGB CONC 32.8 (31.8-35.4); MEAN CORPUSCULAR VOLUME 87.1 fl (80.0-94.0); MONOCYTES # (AUTO) 0.9 K/uL (0.4-2.0); MONOCYTES % (AUTO) 8.9 (0-10); NEUTROPHILS # (AUTO) 5.4 K/ul (2.0-6.9); NEUTROPHILS % (AUTO) 56.6 % (42.2-75.2); PLATELET COUNT 264 10^3/uL (140-440); RDW COEFFICIENT OF VARIATION 13.4 % (11.6-14.8); RED BLOOD COUNT 4.65 10^6/ul (4.70-6.10); WHITE BLOOD COUNT 9.53 K/ul (4.2-10.2)
[2022-07-13 05:50] LABS: ALANINE AMINOTRANSFERASE 17.7 U/L (0-50); ALBUMIN 3.23 g/dL (3.5-5.0); ALKALINE PHOSPHATASE 36.2 U/L (56-119); ASPARTATE AMINO TRANSFERASE 26.2 U/L (17-59); BILIRUBIN,TOTAL 0.54 mg/dL (0.2-1.3); BLOOD UREA NITROGEN 6.9 mg/dL (9-20); CALCIUM 8.09 mg/dL (8.4-10.2); CHLORIDE 105.8 mmol/L (98-107); CHOLESTEROL 132.2 mg/dL (0-200); CREATININE 1.02 mg/dL (0.60-1.10); GLUCOSE 88.4 mg/dL (74-106); HDL CHOLESTEROL 27.4 mg/dL (35-60); LIPASE 153.6 U/L (23-300); POTASSIUM 3.07 mmol/L (3.5-5.1); SODIUM 138.2 mmol/L (134.5-145); TOTAL PROTEIN 5.65 g/dL (6.3-8.2); TRIGLYCERIDES 76.6 mg/dL (0-150)
[2022-07-13] MEDS: CARAFATE PO SCH ×2 (06:03→10:08)
[2022-07-13] MEDS ORDERED: PROTONIX IV IVP SCH (09:00)
[2022-07-13] MEDS ORDERED: POTASSIUM CHLORIDE 20 MEQ/100 ML PREMIX 40 MEQ/200 ML BAG IV ONE (09:36)
--- NOTE | 2022-07-13 10:08 | PCM.PROG ---
Date Seen by Provider: 07/13/22 Time Seen by Provider: 09:30 Subjective: Denies abdominal pain. Tolerating clear liquids. Objective: Vitals: T=97.5 F, P=60, R=18, NT=813/92, SPO2=99 Alert and in NAD. HEENT: [] Neck: [] Lungs: [] Clear. BS equal. CVS: []RRR Abdomen: []Mild RUQ and epigastric tenderness. No peritoneal signs. Extremities: [] Neurological: [] Skin: [] Lab/Tests/Diagnostic Imaging: [] (1) Nausea and vomiting: Status: Acute Code(s): R11.2 - Nausea with vomiting, unspecified SNOMED Code(s): 22680740 (2) Acute pancreatitis: Status: Acute Code(s): K85.90 - Acute pancreatitis without necrosis or infection, unspecified SNOMED Code(s): 984790114 (3) Biliary sludge: Status: Acute Code(s): K83.8 - Other specified diseases of biliary tract SNOMED Code(s): 11437297 Plan: Patient improved clinically. Will discharge later today. He has an appointment with a general surgeon tomorrow for consideration of cholecystectomy.
--- NOTE | 2022-07-13 10:15 | PCM.DC ---
Final Diagnosis: symptomatic biliary sludge acute pancreatitis nausea and vomiting Physical Exam Appearance: Well-appearing, No pain distress and Well-nourished Ill-appearing: None Pain Distress: None Eyes: Not Examined ENT: Nose normal and Oropharynx normal Neck: Supple Respiratory: Airway patent, Breath sounds clear and Breath sounds equal Cardiovascular: RRR, No rub and No murmur GI/: Soft, No masses, Bowel sounds normal, No Organomegaly and Tender (Mild RUQ and epigastric tenderness without peritoneal signs.) Musculoskeletal: Normal strength, ROM intact and No edema Skin: Warm, Dry and Normal color Neurological: Alert and Oriented Psychiatric: Affect appropriate and Mood appropriate (1) Nausea and vomiting: Status: Acute Code(s): R11.2 - Nausea with vomiting, unspecified SNOMED Code(s): 41933667 (2) Acute pancreatitis: Status: Acute Code(s): K85.90 - Acute pancreatitis without necrosis or infection, unspecified SNOMED Code(s): 416492592 (3) Biliary sludge: Status: Acute Code(s): K83.8 - Other specified diseases of biliary tract SNOMED Code(s): 64211791 Reason for Hospitalization: Patient admitted with abdominal pain, nausea and vomiting due to symptomatic biliary sludge and acute pancreatitis. He received IV fluids, analgesics and antiemetics. Patient improved and was discharged on 07/13/22 Prognosis/Condition at Discharge: Condition at discharge was stable. Medications at Discharge: Compazine suppositories in addition to the same medications as at admission. Education Provided to Patient and Family: acute pancreatitis, biliary sludge/cholelithiasis Follow-ups: Keep your appointment with the general surgeon tomorrow. Discharge Disposition: Home Hospital Course: Patient received IV fluids, antiemetics and analgesics. He improved clinically and was discharged. Plan: Follow up with surgeon tomorrow.
[2022-07-13 10:51] VITALS: BP 124/75; TEMP 97.3
== END 2022-07-13 14:15 | disposition home or self-care (01) ==
LOC: MEDSURG A 19:06 → ED 19:06 → MEDSURG A 07-13 01:15
PROVIDERS: ADMIT Emergency Medicine; ATTEND Surgery
DX: Z79.899 Other long term (current) drug therapy; K22.70 Barrett's esophagus without dysplasia; K85.90 Acute pancreatitis without necrosis or infection, unspecified; Z20.822 Contact with and (suspected) exposure to COVID-19; R11.2 Nausea with vomiting, unspecified; F17.210 Nicotine dependence, cigarettes, uncomplicated; K83.8 Other specified diseases of biliary tract; K21.9 Gastro-esophageal reflux disease without esophagitis; Z51.81 Encounter for therapeutic drug level monitoring